=== PATIENT | female | born 1960 | race Caucasian/White ===

== ENCOUNTER 2018-12-23 10:13 | Inpatient (IN) | payer BC, OTHER ==
[~2018-12-23] VITALS: Ht 157.5 cm; Wt 71.4 kg
[2018-12-23] VITALS (32 sets, daily range): BP systolic 100–151; BP diastolic 56–85; PULSE 70–114; RESP 16–27; Ht 157.5 cm; Wt 71.4 kg
[~2018-12-23 10:13] MED LIST: CEFAZOLIN 1 GM INJ ONE; DESFLURANE 15 MIN ONE; HYDR-3612 PO; LEVO125T58 PO; LIDOCAINE 2% (SDV) 5 ML INJ ONE
[2018-12-23] MEDS ORDERED: LEVO150T7 PO (11:02)
[2018-12-23] MEDS ORDERED: HYDR-3609 ORAL (11:03)
--- NOTE | 2018-12-23 11:57 | PREAC ---
Date/Time of Note Date/Time of Note DATE: 12/23/18 TIME: 11:52 Anesthesia Eval and Record Evaluation Time Pre-Procedure Interview DATE: 12/23/18 TIME: 11:52 Age 58 Sex female NPO: 8 hrs Preoperative diagnosis DEGENERATIVE LUMBAR SCOLIOSIS Planned procedure ANTERIOR LUMBAR INTERBODY FUSION L3-S1, POSTERIOR INSTRUMENTED FUSION Past Medical History Past Medical History: Includes Endo: Hypothyroid GI: Other (GASTRIC BYPASS SURGERY ) Surgery & Anesthesia Issues No known issue Meds Anticoagulation: No Beta Demi within 24 hr: No Reason Beta Demi not given: Pt. not on B-Demi Reported Medications Hydrocodone/Acetaminophen (Hydrocodone-Acetamin 10-325 mg) 1 Each Tablet, 1 TAB ORAL Q6 PRN for PAIN LEVEL 7-10 12/23/18 Levothyroxine Sodium* (Levothyroxine Sodium*) 150 Mcg Tablet, 150 MCG PO BEFORE BREAKFAST, #30 TAB 12/23/18 Discontinued Reported Medications Levothyroxine Sodium (Levothroid) 125 Mcg Tablet, 125 MCG PO DAILY 03/05/12 Hydrocodone Bit-Acetaminophen* ([place]*) 1 Tab Tab, 1 TAB PO TID 03/05/12 Current Medications Lactated Ringer's 1,000 ml @ 0 mls/hr Q0M IV* ; Start 12/24/18 at 06:00; Stop 12/24/18 at 18:00 Cefazolin Sodium/ Dextrose 50 ml @ 100 mls/hr PREOP IVPB ; Start 12/24/18 at 06:00; Stop 12/24/18 at 19:00 Meds reviewed: Yes Allergies Coded Allergies: acetaminophen (Verified Allergy, Unknown, nauseous, 12/23/18) codeine (Verified Allergy, Unknown, nauseous, 12/23/18) morphine (Verified Allergy, Unknown, hallucinations, 12/23/18) oxycodone (Verified Allergy, Unknown, nauseous, 12/23/18) Uncoded Allergies: ANTIINFLAMMATORY (Allergy, Unknown, 03/05/12) Allergies Reviewed: Yes Labs/Studies Labs Reviewed: Reviewed by anesthesiologist Blood Bank Test 12/23/18 10:55 Antibody Screen NEGATIVE Blood Product Summary Counts Blood Type B POSITIVE Crossmatch Red Blood Cells test: N/A Studies: ECG, CXR Pre-procedure Exam Last vitals Vital Signs Date Temp Pulse Resp B/P (MAP) Pulse Ox O2 O2 Flow FiO2 Time Delivery Rate 12/23/18 98.8 70 16 129/73 98 Room Air 11:16 (91) Airway: Adequate mouth opening, Adequate thyromental dist Mallampati: Mallampati I Teeth: Normal Lung: Normal Heart: Normal ASA Physical Status ASA physical status: 2 Emergency: None Planned Anesthetic General/MAC: ETT, A Line Planned Pain Management Parenteral pain med Pre-operative Attestations Prior to commencing anesthesia and surgery, the patient was re-evaluated, there was verification of: *The patient's identity *The results of appropriate recent lab work and preoperative vital signs *The above evaluation not changing prior to induction *Anesthetic plan, risk benefits, alternative and complications discussed with patient/family; questions answered; patient/family understands, accepts and wish es to proceed. HOMER HAJI Dec 23, 2018 11:57
[2018-12-23] MEDS ORDERED: GELATIN SIZE 100 SPONGE ONE (12:21)
[2018-12-23] MEDS ORDERED: SURGIFOAM POWDER 1 GM KIT ONE (12:21)
[2018-12-23] MEDS ORDERED: POLYMYXIN/BACITRACIN 1L IRRIG ONE (12:22)
[2018-12-23] MEDS ORDERED: BUPIVACAINE 0.5%/EPI (SDV) 30 ML INJ ONE (12:22)
[2018-12-23] MEDS ORDERED: PROPOFOL 20 ML ONE (12:24)
[2018-12-23] MEDS ORDERED: HYDROmorphONE 2 MG/ML SYG ONE (12:30)
[2018-12-23] MEDS ORDERED: ROCURONIUM 50 MG INJ ONE (12:30)
[2018-12-23] MEDS ORDERED: PHENYLephrine 10 MG INJ ONE (12:32)
[2018-12-23] MEDS: D5W-0.45 NACL + KCL 20 MEQ 1,000 ML IV SCH ×3 (12:36→22:36)
--- NOTE | 2018-12-23 12:36 | HPN ---
Date/Time of Note Date/Time of Note DATE: 12/23/18 TIME: 12:36 Interval H&P Admission Note Pt. seen H&P reviewed: No system changes BETHANY RIZZO PA-C Dec 23, 2018 12:36
[2018-12-23] MEDS ORDERED: DIPHENHYDRAMINE 50 MG INJ IV PRN ×2 (13:00→17:00)
[2018-12-23] MEDS ORDERED: ONDANSETRON 4 MG INJ IV PRN ×2 (13:00→17:00)
[2018-12-23] MEDS ORDERED: BISACODYL 10 MG SUPP PR PRN (13:00)
[2018-12-23] MEDS ORDERED: NALOXONE (0.4 MG/ML) INJ IV PRN (13:00)
[2018-12-23] MEDS ORDERED: DIPHENHYDRAMINE 25 MG CAP PO PRN (13:00)
[2018-12-23] MEDS ORDERED: CYCLOBENZAPRINE 10 MG TAB PO PRN (13:00)
[2018-12-23] MEDS: CEFAZOLIN 1 GM/50 ML (PMX) 50 ML IVPB SCH ×2 (13:00→20:57)
[2018-12-23] MEDS ORDERED: HYDROmorphONE 0.5 MG/0.5 ML SYG IV PRN (13:00)
[2018-12-23] MEDS ORDERED: CEPASTAT LOZENGE MT PRN (13:00)
[2018-12-23] MEDS ORDERED: AL HYDROX/MG HYDROX/SIMETH 30 ML CUP PO PRN (13:00)
[2018-12-23] MEDS ORDERED: ACETAMINOPHEN 325 MG TAB PO PRN (13:00)
[2018-12-23] MEDS: THROMBIN (BOVINE) 5,000 UNIT VIAL TP ONE (14:02)
[2018-12-23] MEDS ORDERED: DEXAMETHASONE 4 MG/ML 5 ML INJ ONE (14:39)
[2018-12-23] MEDS ORDERED: ONDANSETRON 4 MG INJ ONE (14:40)
--- NOTE | 2018-12-23 16:35 | SIPON ---
Date/Time of Note Date/Time of Note DATE: 12/23/18 TIME: 16:34 Operative Report Preoperative Diagnosis Degenerative lumbar scoliosis Postoperative Diagnosis Degenerative lumbar scoliosis Operation/Procedure Performed L2-L5 anterior lumbar fusion Surgeon see signature line shipping and receiving assistant Yocasta Hinds Anesthesia: general Estimated blood loss: 10 - 50 ml's Transfusion Required none Specimen Disc Grafts/Implants Cages Complications none ANTONIO TRUJILLO MD Dec 23, 2018 16:35
[2018-12-23] MEDS ORDERED: FENTAnyl 50 MCG/ML VIAL ONE (16:37)
--- NOTE | 2018-12-23 16:37 | PAC ---
Date/Time of Note Date/Time of Note DATE: 12/23/18 TIME: 16:37 Post-Anesthesia Notes Post-Anesthesia Note Last documented vital signs Vital Signs Date Temp Pulse Resp B/P (MAP) Pulse Ox O2 O2 Flow FiO2 Time Delivery Rate 12/23/18 98.8 70 16 129/73 98 Room Air 1637 (91) Activity: WNL Respiratory function: WNL Cardiovascular function: WNL Mental status: Baseline Pain reasonably controlled: Yes Hydration appropriate: Yes Nausea/Vomiting absent: Yes HOMER HAJI Dec 23, 2018 16:37
[2018-12-23] MEDS: HYDROmorphONE 0.2 MG/ML PCA IV SCH ×2 (16:46→23:14)
[2018-12-23] MEDS: FENTAnyl 50 MCG/ML VIAL IV PRN ×2 (16:48→16:54)
[2018-12-23] MEDS ORDERED: ALBUTEROL 0.083% (NEB) 2.5 MG/3 ML AMP HHN PRN (17:00)
[2018-12-23] MEDS ORDERED: MIDAZOLAM 1 MG/ML 2 ML INJ IV PRN (17:00)
[2018-12-23] MEDS ORDERED: hydrALAzine 20 MG INJ IV PRN (17:00)
[2018-12-23] MEDS ORDERED: FENTAnyl 50 MCG/ML VIAL IV PRN ×2 (17:00)
[2018-12-23] MEDS ORDERED: EPHEDrine SULFATE 50 MG/5 ML SYG IV PRN (17:00)
[2018-12-23] MEDS ORDERED: METOCLOPRAMIDE 10 MG INJ IV PRN (17:00)
[2018-12-23] MEDS ORDERED: KETOROLAC 30 MG INJ IV PRN (17:00)
[2018-12-23] MEDS ORDERED: HYDROmorphONE 1 MG/5 ML IV SYRINGE IV PRN ×3 (17:00)
[2018-12-23] MEDS ORDERED: OXYCODONE/ACETAMINOPHEN (5/325) TAB PO PRN ×2 (17:00)
[2018-12-23] MEDS ORDERED: MEPERIDINE 25 MG INJ IV PRN (17:00)
[2018-12-23] MEDS ORDERED: LABETALOL HCL 20MG INJ IV PRN (17:00)
--- NOTE | 2018-12-23 18:21 | OPR ---
DATE OF OPERATION: 12/23/2018 PREOPERATIVE DIAGNOSES: Degenerative lumbar scoliosis and stenosis with radiculopathy. POSTOPERATIVE DIAGNOSES: Degenerative lumbar scoliosis and stenosis with radiculopathy. PROCEDURES: 1. Anterior lumbar interbody fusion at L2 to L3, L3 to L4, L4 to L5. 2. Placement of intervertebral biomechanical device at L2 to L3, L3 to L4, L4 to L5. 3. Use of allograft. 4. Use of C-arm fluoroscopy with interpretation without radiologist present. 5. Intraoperative neuromonitoring. IMPLANTS: 1. RTI Fortilink interbody cages 9 x 45 mm width with 6 degrees of lordosis x 22 mm at L2 to L3 and L3 to L4 and 11 mm x 22 mm x 45 mm with 6 degrees of lordosis at L4 to L5. 2. Biosphere. PRIMARY SURGEON: Niraj Dominguez MD SLIP LASTER: Yocasta Hinds PA-C NEED FOR HAZARDOUS MATERIALS DRIVER: During this spinal surgical procedure, my orthodontist assistant was used to retract and protect the spinal nerves and dural sac. My orthodontist assistant also employed the suction catheters to ev acuate blood from the surgical field to improve visualization of the neural structures. The assistan t was medically necessary to facilitate the completion of the surgery in a safe and expeditious [facility] regulations, as well as hospital bylaws, preclude the use of non-licensed [facility] care personnel, such as operating room technicians, to perform these functions. FINDINGS: Neuromonitoring at the start of the case revealed left L3 amplitude down 30%, left L4 down 40%, right L5 down 30%. At the end of the case, nerve signals returned to normal. The patient had a significant degenerative scoliosis. ESTIMATED BLOOD LOSS: 50 mL. DRAINS: None. SPECIMENS: L2 to L3, L3 to L4, L4 to L5 disk. COMPLICATIONS OF PROCEDURES: None. ANESTHESIOLOGIST: Dr. Urias TYPE OF ANESTHESIA: General. INDICATIONS FOR PROCEDURE: This is a 58-year-old female with degenerative lumbar scoliosis with back pain as well as lower extremity pain. She had coronal and sagittal deformities and therefore it is recommended that she undergo the above procedure. Preoperatively, we discussed risks, benefits and a lternatives. She understood and wished to proceed. DESCRIPTION OF PROCEDURE IN DETAIL: The patient was identified in the preoperative holding area, giv en Ancef antibiotic, taken to the operating room, where she was successfully placed under general ane sthesia. Neuromonitoring leads were placed. Sequential compressive devices were applied. Elizondo cat heter was introduced. Remote intraoperative neuromonitoring was performed by Dr. Patel from 12:4 4 until 16:40 to include SSEP, MEP and EMG performed by [facility]. The patient was placed in the left lateral decubitus position. Bony prominences were padded. The bed was flexed to allow acce ss to the spine. The right flank was prepped, draped in usual sterile fashion. A direct lateral inc ision was then made. Skin was incised. I then finger dissected into the retroperitoneal space. Tye correa, I placed a dilator onto the L4 to L5 level. I placed a guidewire. This was done with neurom onitoring. I placed larger dilators followed by placement of the retractor blade. I exposed the lat eral annulus at L4 to L5 on the right. I probed the area and made sure that there were no neural martin ments in the field. I made an annulotomy. I performed a radical diskectomy. Under C-arm guidance, I placed various trials and chose the appropriate graft height. I then took TETRAfuse cage within wh ich I placed allograft and I impacted intervertebral mechanical device into the L4 to L5 level to com plete the anterior lumbar interbody fusion at L4 to L5. I then turned my attention to the L2 to L3 l evel. The patient had a very low rib and therefore I go between the ribs, making sure I was not in t he neurovascular bundle. Once this was done, I was able to place dilators followed by the retractor. I performed similar steps to the previous level and exposed the area to make sure that there were n o neural elements in the field. Annulotomy was made followed by radical diskectomy. I placed variou s trials and chose the appropriate graft height. I then took the TETRAfuse cage within which I place d allograft and I impacted the rib and intervertebral biomechanical device into the L2 to L3 level to complete the anterior lumbar interbody fusion at L2 to L3. I then turned my attention to the L3 to L4 level. Similarly here, I was able to place a guidewire. This level was more difficult due to lar ge osteophyte. I placed dilator followed by placement of guidewires and the larger dilators. I stim ulated each of these along the way. I then docked the retractor blade. I confirmed that there were no neural elements in the field. There was a large lateral osteophyte and I was only able to barely get my knife blade into the area and therefore I took a pituitary rongeur and removed the lateral ost eophytes to allow access to the disk space. I then made an annulotomy and placed dilators to open up the disk space. I then placed various trials and chose the appropriate graft height. I then took t he TETRAfuse cage within which I placed allograft and I impacted intervertebral mechanical device int o the L3 to L4 level to complete the anterior lumbar interbody fusion at L2 to L3. Once this was don e, I took final AP and lateral images and I was happy with placement of the hardware. The nerve sign als returned to normal. I irrigated the wound and achieved hemostasis with Surgifoam and bipolar cau michael. The retractors were then removed. I took final images and I proceeded to close the wound in l al. I closed the deep fascia with #1 Vicryl stitch. There was not enough tissue to close the inn er rib space. I then closed subcutaneous tissue with a 2-0 Vicryl stitch. A 4-0 Monocryl closure wa s then performed. Dermabond was then applied. The patient was then awakened from anesthesia and isaiah en to the recovery room in stable condition. Lap, sponge and instrument counts were correct x2. The re were no apparent complications during the procedure. The patient will be admitted to the [facility] for routine postoperative care to include pain co ntrol, neurovascular checks, antibiotics and physical therapy. Dictated By: NIRAJ DOMINGUEZ MD BB/JAYLEEN Conf#: [id number] DID#: [id number] CC: MAYITO KIRBY MD;*EndCC*
--- NOTE | 2018-12-23 20:20 | CONS ---
DATE OF ADMISSION: 12/23/2018 DATE OF CONSULTATION: 12/23/2018 TYPE OF CONSULTATION: Medical. Thank you, Dr. Dominguez, for asking me to participate in medical management of this patient. HISTORY OF PRESENT ILLNESS: This 58-year-old female is now postop a lumbar spine surgery. The patie nt is awake and alert. She was having pain prior to her surgery that was in the low back and radiate d down her left leg from the knee to the foot. She underwent surgery today which included an anterio r lumbar interbody fusion at L2-L3, L3-L4 and L4-L5. She also had a placement of an intervertebral b iomechanical device at those levels. She does have some low back pain now, although the left leg jovanni n is gone. She denies any chest pain or shortness of breath. Her is in the room with her. She does have a preoperative note from Dr. Addison beard who cleared her for this surgery. PAST MEDICAL HISTORY: Acquired hypothyroidism. PAST SURGICAL HISTORY: , gastric bypass surgery, ortho surgery, tonsillectomy, total hyster ectomy. SOCIAL HISTORY: She is . She has never smoked. She does not drink alcohol. PREOPERATIVE MEDICATIONS: 1. Synthroid 125 mcg a day. 2. [place] 10/325. 3. Gabapentin 300 mg 5 times a day. 4. Fioricet. ALLERGIES: SHE HAS ALLERGIES TO ERYTHROMYCIN AND MORPHINE. PHYSICAL EXAMINATION: GENERAL: At this time reveals a well-developed female in no apparent distress, although she is in mi in that is being medicated for. VITAL SIGNS: Temperature 98.2, pulse is 78, respirations 20, blood pressure 128/75, O2 saturation 98 % on room air. HEENT: Head normocephalic. Eyes: Extraocular muscles intact. NOSE AND MOUTH: Normal. NECK: Supple. No neck vein distention. LUNGS: Clear to auscultation. HEART: Regular rhythm. No murmurs, gallops or rubs. ABDOMEN: Soft, nontender, no masses or megaly. EXTREMITIES: No peripheral edema. IMPRESSION: This patient is now stable postop a lumbar spine surgery. She had an extensive lumbar s pine fusion of multiple levels. She denies any chest pain or shortness of breath. She has no histor y of heart disease, hypertension or diabetes mellitus. She is on thyroid replacements for hypothyroi dism. I will manage the patient's hypothyroidism. PLAN: 1. Resume routine medications. 2. Check labs in the morning. 3. Postop lumbar spine surgery protocol. 4. I will follow the patient along with you. Dictated By: YULIYA ROSALES MD ND/JAYLEEN Conf#: [id number] DID#: [id number] CC: ANTONIO DOMINGUEZ MD;*End*
[2018-12-23] MEDS: DOCUSATE SODIUM 100 MG CAP PO SCH (20:57)
[2018-12-24] VITALS (29 sets, daily range): BP systolic 91–159; BP diastolic 50–83; PULSE 70–113; RESP 17–36
[2018-12-24] MEDS: LEVOTHYROXINE 150 MCG TAB PO SCH (01:19)
[2018-12-24] MEDS: CEFAZOLIN 1 GM/50 ML (PMX) 50 ML IVPB SCH ×4 (05:13→23:20)
[2018-12-24] MEDS: D5W-0.45 NACL + KCL 20 MEQ 1,000 ML IV SCH ×3 (05:15→20:07)
[2018-12-24] MEDS ORDERED: CEFAZOLIN 2 GM/50 ML (PMX) 50 ML IVPB SCH (06:00)
[2018-12-24] MEDS ORDERED: PANTOPRAZOLE 40 MG INJ IV SCH (06:00)
[2018-12-24] MEDS ORDERED: LACTATED RINGER'S 1,000 ML IV* SCH (06:00)
[2018-12-24] MEDS: HYDROmorphONE 0.2 MG/ML PCA IV SCH ×2 (07:41→19:38)
[2018-12-24] MEDS: DOCUSATE SODIUM 100 MG CAP PO SCH ×2 (08:00→20:51)
--- NOTE | 2018-12-24 08:15 | CONS ---
Assessment/Plan Assessment/Plan Hospital Course (Demo Recall) 1. Miroslava is now 1 day postop a lumbar spine surgery. She is feeling better today. She has been afebrile. Her laboratory tests are acceptable. She is going to have a second stage surgery today to complete her lumbar spine reconstruction. 2. Her blood pressure is low this morning I am going to give her a bolus of normal saline. Consultation Date/Type/Reason Admit Date/Time Dec 23, 2018 at 10:13 Initial Consult Date Type of Consult medicine Date/Time of Note DATE: 12/24/18 TIME: 08:11 24 HR Interval Summary Free Text/Dictation She is now 1 day postop a lumbar spine surgery. She is feeling better with much less pain. She is going for a second stage surgery today. Constitutional: improved Exam/Review of Systems Exam Vitals Vital Signs Date Temp Pulse Resp B/P (MAP) Pulse Ox O2 O2 Flow FiO2 Time Delivery Rate 12/24/18 98.2 82 18 91/50 (64) 97 Room Air 08:04 12/23/18 2.0 23:50 Intake and Output 12/23/18 12/23/18 12/24/18 1515:00 23:00 07:00 IntakeIntake Total 1750 ml 1350 ml OutputOutput Total 350 ml 2700 ml BalanceBalance 1400 ml -1350 ml Constitutional: alert, oriented, well developed Respiratory: clear to auscultation, normal air movement Cardiovascular: regular rate and rhythm Gastrointestinal: soft, non-tender Musculoskeletal: nl extremities to inspection Results Result Diagram: 12/24/18 0427 12/24/18 0427 Results 24hrs Laboratory Tests Test 12/24/18 04:27 White Blood Count 8.8 Red Blood Count 4.26 Hemoglobin 10.7 L Hematocrit 34.6 L Mean Corpuscular Volume 81.2 L Mean Corpuscular Hemoglobin 25.1 L Mean Corpuscular Hemoglobin Concent 30.9 L Red Cell Distribution Width 14.9 H Platelet Count 360 Mean Platelet Volume 9.1 Immature Granulocytes % 0.100 Neutrophils % 69.8 Lymphocytes % 19.9 Monocytes % 10.0 Eosinophils % 0.1 Basophils % 0.1 Nucleated Red Blood Cells % 0.0 Immature Granulocytes # 0.010 Neutrophils # 6.1 Lymphocytes # 1.7 Monocytes # 0.9 Eosinophils # 0.0 Basophils # 0.0 Nucleated Red Blood Cells # 0.0 Sodium Level 141 Potassium Level 4.3 Chloride Level 102 Carbon Dioxide Level 31 Anion Gap 8 Blood Urea Nitrogen 11 Creatinine 0.67 Est Glomerular Filtrat Rate mL/min > 60 Glucose Level 121 Calcium Level 8.5 Magnesium Level 1.8 Medications Medication Current Medications Potassium Chloride/Dextrose/ Sod Cl 1,000 ml @ 100 mls/hr Q10H IV Last administered on 12/24/18at 05:15; Admin Dose 100 MLS/HR; Start 12/23/18 at 12:36 Acetaminophen/ Hydrocodone Bitart ([place] (325)) 1 tab Q4H PRN PO .PAIN 1-5; Start 12/26/18 at 10:00 Acetaminophen/ Hydrocodone Bitart ([place] (325)) 2 tab Q4H PRN PO .PAIN 6-10; Start 12/26/18 at 10:00 Hydromorphone HCl (Dilaudid) 0.2 mg Q1H PRN IV .BREAKTHROUGH PAIN; Start 12/23/18 at 13:00 Cefazolin Sodium 50 ml @ 100 mls/hr Q8H IVPB Last administered on 12/24/18at 05:13; Admin Dose 100 MLS/HR; Start 12/23/18 at 13:00; Stop 12/26/18 at 05:29 Ondansetron HCl (Zofran Inj) 4 mg Q6H PRN IV NAUSEA/VOMITING Last administered on 12/23/18at 18:59; Admin Dose 4 MG; Start 12/23/18 at 13:00 Bisacodyl (Dulcolax Supp) 10 mg DAILY PRN IN .CONSTIPATION; Start 12/23/18 at 13:00 Docusate Sodium (Colace) 100 mg BID PO Last administered on 12/23/18at 20:57; Admin Dose 100 MG; Start 12/23/18 at 21:00 Pantoprazole (Protonix Iv) 40 mg DAILY@06 IV Last administered on 12/24/18at 05:13; Admin Dose 40 MG; Start 12/24/18 at 06:00 Al Hydrox/Mg Hydrox/Simethicone (Mag-Al Plus) 15 ml Q6H PRN PO .CONSTIPATION/DYSPEPSIA; Start 12/23/18 at 13:00 Acetaminophen (Tylenol Tab) 650 mg Q4H PRN PO POPE OR TEMP GREATER THAN 101.3F; Start 12/23/18 at 13:00 Cyclobenzaprine HCl (Flexeril) 10 mg TID PRN PO .MUSCLE SPASMS Last adm inistered on 12/23/18at 19:19; Admin Dose 10 MG; Start 12/23/18 at 13:00 Phenol (Cepastat Lozenge) 1 lozenge PRN PRN [place] .SORE THROAT; Start 12/23/18 at 13:00 Diphenhydramine HCl (Benadryl) 25 mg Q6H PRN PO .ITCHING; Start 12/23/18 at 13:00 Diphenhydramine HCl (Benadryl) 25 mg Q6H PRN IV .ITCHING; Start 12/23/18 at 13:00 Naloxone HCl (Narcan) 0.2 mg Q2M PRN IV .RR 8 BREATHS/MIN OR LESS; Start 12/23/18 at 13:00 Hydromorphone HCl (Dilaudid HERBOLOGIST) HERBOLOGIST to be started in PACU Q4PCA IV Last administered on 12/24/18at 07:41; Admin Dose 6 MG; Start 12/23/18 at 13:00; Stop 12/26/18 at 10:00 Miscellaneous Information 1. Hold HERBOLOGIST at 1,000... HERBOLOGIST IV ; Start 12/23/18 at 13:00; Stop 12/26/18 at 10:00 Levothyroxine Sodium (Synthroid) 150 mcg BEFORE BREAKFAST PO ; Start 12/24/18 at 07:00 YULIYA ROSALES MD Dec 24, 2018 08:15
[2018-12-24] MEDS ORDERED: SOD CHLORIDE 0.9% 250 ML IV ONE (08:30)
[2018-12-24] MEDS ORDERED: SURGIFOAM POWDER 1 GM KIT ONE (09:23)
[2018-12-24] MEDS ORDERED: BUPIVACAINE 0.5%/EPI (SDV) 30 ML INJ ONE (09:23)
[2018-12-24] MEDS ORDERED: THROMBIN (BOVINE) 5,000 UNIT VIAL TP ONE (09:23)
[2018-12-24] MEDS ORDERED: HEPARIN 1000 UNITS/ML 10 ML INJ ONE (09:47)
--- NOTE | 2018-12-24 10:04 | HPN ---
Date/Time of Note Date/Time of Note DATE: 12/24/18 TIME: 10:04 Interval H&P Admission Note Pt. seen H&P reviewed: No system changes BETHANY RIZZO PA-C Dec 24, 2018 10:04
[2018-12-24] MEDS ORDERED: CEFAZOLIN 1 GM INJ ONE ×2 (10:28→15:46)
[2018-12-24] MEDS ORDERED: ACETAMINOPHEN 325 MG TAB PO PRN (10:30)
[2018-12-24] MEDS ORDERED: CEPASTAT LOZENGE MT PRN (10:30)
[2018-12-24] MEDS ORDERED: NALOXONE (0.4 MG/ML) INJ IV PRN (10:30)
[2018-12-24] MEDS ORDERED: DIPHENHYDRAMINE 25 MG CAP PO PRN (10:30)
[2018-12-24] MEDS ORDERED: AL HYDROX/MG HYDROX/SIMETH 30 ML CUP PO PRN (10:30)
[2018-12-24] MEDS ORDERED: DIPHENHYDRAMINE 50 MG INJ IV PRN ×2 (10:30→16:30)
[2018-12-24] MEDS ORDERED: BISACODYL 10 MG SUPP PR PRN (10:30)
[2018-12-24] MEDS ORDERED: ONDANSETRON 4 MG INJ IV PRN ×2 (10:30→16:30)
--- NOTE | 2018-12-24 10:30 | PN ---
Date/Time of Note Date/Time of Note DATE: 12/24/18 TIME: 10:29 Assessment/Plan Lines/Catheters IV Catheter Type (from Nrsg): Peripheral IV Elizondo in Place (from Nrsg): Yes Assessment/Plan Assessment/Plan POD #1 s/p L2-5 lateral fusion will proceed with stage II of her surgery as planned - posterior decompression and instrumented fusion L2-S1 Subjective 24 Hr Interval Summary pt c/o LBP notes improvement in left leg numbness and pain Exam/Review of Systems Vital Signs Vitals Vital Signs Date Temp Pulse Resp B/P (MAP) Pulse Ox O2 O2 Flow FiO2 Time Delivery Rate 12/24/18 09:13 12/24/18 102/53 08:13 (69) 12/24/18 98.2 82 97 Room Air 08:04 12/23/18 2.0 23:50 Intake and Output 12/23/18 12/23/18 12/24/18 1515:00 23:00 07:00 IntakeIntake Total 1750 ml 1350 ml OutputOutput Total 350 ml 2700 ml BalanceBalance 1400 ml -1350 ml Exam Free Text/Dictation exam unchanged Results Result Diagram: 12/24/18 0427 12/24/18 0427 BETHANY RIZZO PA-C Dec 24, 2018 10:30
--- NOTE | 2018-12-24 10:31 | PREAC ---
Date/Time of Note Date/Time of Note DATE: 12/24/18 TIME: 10:28 Anesthesia Eval and Record Evaluation Time Pre-Procedure Interview DATE: 12/24/18 TIME: 10:28 Age 58 Sex female NPO: 8 hrs Preoperative diagnosis Degenerative Lumbar L2,3,4,5 S1 scoliosis Planned procedure L2,3,4,5 S1 Decompression Past Medical History Past Medical History: Includes Endo: Hypothyroid, Hyperthyroid Surgery & Anesthesia Issues No known issue Meds Anticoagulation: No Beta Demi within 24 hr: No Reason Beta Demi not given: Pt. not on B-Demi Reported Medications Hydrocodone/Acetaminophen (Hydrocodone-Acetamin 10-325 mg) 1 Each Tablet, 1 TAB ORAL Q6 PRN for PAIN LEVEL 7-10 12/23/18 Levothyroxine Sodium* (Levothyroxine Sodium*) 150 Mcg Tablet, 150 MCG PO BEFORE BREAKFAST, #30 TAB 12/23/18 Discontinued Reported Medications Levothyroxine Sodium (Levothroid) 125 Mcg Tablet, 125 MCG PO DAILY 03/05/12 Hydrocodone Bit-Acetaminophen* ([place]*) 1 Tab Tab, 1 TAB PO TID 03/05/12 Current Medications Acetaminophen/ Hydrocodone Bitart ([place] (10/325)) 1 tab Q4H PRN PO .PAIN 1-5; Start 12/26/18 at 10:00 Acetaminophen/ Hydrocodone Bitart ([place] (10/325)) 2 tab Q4H PRN PO .PAIN 6-10; Start 12/26/18 at 10:00 Levothyroxine Sodium (Synthroid) 150 mcg BEFORE BREAKFAST PO ; Start 12/24/18 at 07:00 Potassium Chloride/Dextrose/ Sod Cl 1,000 ml @ 100 mls/hr Q10H IV ; Start 12/24/18 at 10:07; Status UNV Acetaminophen/ Hydrocodone Bitart ([place] (10/325)) 1 tab Q4H PRN PO .PAIN 1-5; Start 12/24/18 at 10:30; Status UNV Acetaminophen/ Hydrocodone Bitart ([place] (10/325)) 2 tab Q4H PRN PO .PAIN 6-10; Start 12/24/18 at 10:30; Status UNV Hydromorphone HCl (Dilaudid) 0.2 mg Q1H PRN IV .BREAKTHROUGH PAIN; Start 12/24/18 at 10:30; Status UNV Cefazolin Sodium 50 ml @ 100 mls/hr Q8H IVPB ; Start 12/24/18 at 10:30; Stop 12/25/18 at 02:59; Status UNV Ondansetron HCl (Zofran Inj) 4 mg Q6H PRN IV NAUSEA/VOMITING; Start 12/24/18 at 10:30; Status UNV Bisacodyl (Dulcolax Supp) 10 mg DAILY PRN [place] .CONSTIPATION; Start 12/24/18 at 10:30; Status UNV Docusate Sodium (Colace) 100 mg BID PO ; Start 12/24/18 at 21:00; Status UNV Al Hydrox/Mg Hydrox/Simethicone (Mag-Al Plus) 15 ml Q6H PRN PO .CONSTIPATION/DYSPEPSIA; Start 12/24/18 at 10:30; Status UNV Acetaminophen (Tylenol Tab) 650 mg Q4H PRN PO POPE OR TEMP GREATER THAN 101.3F; Start 12/24/18 at 10:30; Status UNV Cyclobenzaprine HCl (Flexeril) 10 mg TID PRN PO .MUSCLE SPASMS; Start 12/24/18 at 10:30; Status UNV Phenol (Cepastat Lozenge) 1 lozenge PRN PRN [place] .SORE THROAT; Start 12/24/18 at 10:30; Status UNV Diphenhydramine HCl (Benadryl) 25 mg Q6H PRN PO .ITCHING; Start 12/24/18 at 10:30; Status UNV Diphenhydramine HCl (Benadryl) 25 mg Q6H PRN IV .ITCHING; Start 12/24/18 at 10:30; Status UNV Naloxone HCl (Narcan) 0.2 mg Q2M PRN IV .RR 8 BREATHS/MIN OR LESS; Start 12/24/18 at 10:30; Status UNV Hydromorphone HCl (Dilaudid RESEARCH PSYCHOLOGIST) RESEARCH PSYCHOLOGIST to be started in PACU Q4PCA IV ; Start 12/24/18 at 10:30; Status UNV Miscellaneous Information 1. Hold RESEARCH PSYCHOLOGIST at 1,000... RESEARCH PSYCHOLOGIST IV ; Start 12/24/18 at 10:30; Status UNV Meds reviewed: Yes Allergies Coded Allergies: acetaminophen (Verified Allergy, Unknown, nauseous, 12/23/18) codeine (Verified Allergy, Unknown, nauseous, 12/23/18) morphine (Verified Allergy, Unknown, hallucinations, 12/23/18) oxycodone (Verified Allergy, Unknown, nauseous, 12/23/18) Uncoded Allergies: ANTIINFLAMMATORY (Allergy, Unknown, 03/05/12) Allergies Reviewed: Yes Labs/Studies Labs Reviewed: Reviewed by anesthesiologist Result Diagram: 12/24/18 0427 12/24/18 0427 Laboratory Tests 12/24/18 04:27 Blood Bank Test 12/23/18 10:55 Antibody Screen NEGATIVE Blood Product Summary Counts Blood Type B POSITIVE Crossmatch Red Blood Cells test: N/A Studies: ECG Pre-procedure Exam Last vitals Vital Signs Date Temp Pulse Resp B/P (MAP) Pulse Ox O2 O2 Flow FiO2 Time Delivery Rate 12/24/18 09:13 12/24/18 102/53 08:13 (69) 12/24/18 98.2 82 97 Room Air 08:04 12/23/18 2.0 23:50 Airway: Adequate mouth opening, Adequate thyromental dist Mallampati: Mallampati II Teeth: Normal Lung: Normal Heart: Normal ASA Physical Status ASA physical status: 3 Emergency: None Planned Anesthetic General/MAC: ETT Planned Pain Management Parenteral pain med Pre-operative Attestations Prior to commencing anesthesia and surgery, the patient was re-evaluated, there was verification of: *The patient's identity *The results of appropriate recent lab work and preoperative vital signs *The above evaluation not changing prior to induction *Anesthetic plan, risk benefits, alternative and complications discussed with patient/family; questions answered; patient/family understands, accepts and wishes to proceed. LELA WALKER MD Dec 24, 2018 10:31
[2018-12-24] MEDS ORDERED: MIDAZOLAM 1 MG/ML 2 ML INJ ONE (10:33)
[2018-12-24] MEDS: THROMBIN (BOVINE) 5,000 UNIT VIAL TP ONE (12:01)
[2018-12-24] MEDS ORDERED: POLYMYXIN/BACITRACIN 1L IRRIG IRR ONE (12:03)
[2018-12-24] MEDS ORDERED: NEOSTIGMINE 3 MG/3 ML SYRINGE ONE (15:45)
[2018-12-24] MEDS ORDERED: PROPOFOL 100 ML ONE (15:45)
[2018-12-24] MEDS ORDERED: METOCLOPRAMIDE 10 MG INJ ONE (15:45)
[2018-12-24] MEDS ORDERED: ROCURONIUM 50 MG INJ ONE (15:45)
[2018-12-24] MEDS ORDERED: LIDOCAINE 2% (SDV) 5 ML INJ ONE (15:45)
[2018-12-24] MEDS ORDERED: ONDANSETRON 4 MG INJ ONE (15:45)
[2018-12-24] MEDS ORDERED: GLYCOPYRROLATE 0.4 MG INJ ONE (15:45)
--- NOTE | 2018-12-24 16:17 | SIPON ---
Date/Time of Note Date/Time of Note DATE: 12/24/18 TIME: 16:16 Operative Report Preoperative Diagnosis degen scoli s/p alif Postoperative Diagnosis degen scoli s/p alif Operation/Procedure Performed L2-S1 fusion Surgeon see signature line night assistant bethany Anesthesia: general Estimated blood loss: 150 - 200 ml's Transfusion Required none Specimen disk Grafts/Implants cage and screws Complications none ANTONIO TRUJILLO MD Dec 24, 2018 16:17
[2018-12-24] MEDS ORDERED: FENTAnyl 50 MCG/ML VIAL ONE (16:19)
--- NOTE | 2018-12-24 16:22 | PAC ---
Date/Time of Note Date/Time of Note DATE: 12/24/18 TIME: 16:21 Post-Anesthesia Notes Post-Anesthesia Note Last documented vital signs Vital Signs Date Temp Pulse Resp B/P (MAP) Pulse Ox O2 O2 Flow FiO2 Time Delivery Rate 12/24/18 99.0 16:18 12/24/18 19 09:13 12/24/18 102/53 08:13 (69) 12/24/18 82 97 Room Air 08:04 12/23/18 2.0 23:50 Activity: WNL Respiratory function: WNL Cardiovascular function: WNL Mental status: Baseline Pain reasonably controlled: Yes Hydration appropriate: Yes Nausea/Vomiting absent: Yes Comments BP:134/64, P:78, Spo2:100%, T:99 LELA WALKER MD Dec 24, 2018 16:22
[2018-12-24] MEDS ORDERED: MIDAZOLAM 1 MG/ML 2 ML INJ IV PRN (16:30)
[2018-12-24] MEDS ORDERED: METOCLOPRAMIDE 10 MG INJ IV PRN (16:30)
[2018-12-24] MEDS ORDERED: FENTAnyl 50 MCG/ML VIAL IV PRN ×2 (16:30)
--- NOTE | 2018-12-24 16:36 | OPR ---
DATE OF OPERATION: 12/24/2018 PREOPERATIVE DIAGNOSES: 1. Degenerative lumbar scoliosis. 2. Spinal stenosis. 3. Previous history of posterior decompression. 4. Status post anterior lumbar fusion. POSTOPERATIVE DIAGNOSES: 1. Degenerative lumbar scoliosis. 2. Spinal stenosis. 3. Previous history of posterior decompression. 4. Status post anterior lumbar fusion. PROCEDURES PERFORMED: 1. Pedicle screw placement at L2, L3, L5 and S1 bilaterally. 2. Use of navigation for pedicle screw placement. 3. Transforaminal lumbar interbody fusion L5-S1. 4. Placement of intervertebral mechanical device at L5-S1. 5. Posterolateral fusion at L2-3, L3-4, L4-5, L5-S1. 6. Left L5-S1 decompression for stenosis. 7. Use of C-arm fluoroscopy with interpretation without radiologist present. 8. Use of intraoperative neuromonitoring. 9. Use of operative microscope. 10. Use of allograft. PRIMARY SURGEON: Niraj Dominguez MD BLEACH TESTER: Yocasta Hinds PA-C NEED FOR CERTIFIED ART THERAPIST: During this spinal surgical procedure, my cancer genetics assistant was used to retract and protect the spinal nerves and dural sac. My cancer genetics assistant also employed the suction catheters to evacuate blood from the surgical field to improve visualization of the neural structures. The cancer genetics assistant was medically necessary to facilitate the completion of the surgery in a safe and expeditious manner. State of [place] regulations, as well as hospital bylaws, preclude the use of non-licensed health care personnel, such as operating room technicians, to perform these functions. IMPLANTS: 1. Orthofix [place] pedicle screws 6.5 x 40 mm bilaterally at L2 and L3, 7.5 x 45 mm bilaterally at L5, 7.5 x 40 mm bilaterally at S1. 2. NEXXT Matrixx 8 x 26 mm cage. 3. Biosphere. FINDINGS: Neuromonitoring at the beginning and at the end of the case were normal. There was a pars fracture on the left at L5 with stenosis. ESTIMATED BLOOD LOSS: 150 mL. DRAINS: None. SPECIMENS: L5-S1 disk. COMPLICATIONS OF PROCEDURES: None. ANESTHESIOLOGIST: Demetrio Elizabeth MD TYPE OF ANESTHESIA: General. INDICATIONS FOR PROCEDURE: This is a 58-year-old female with degenerative lumbar scoliosis with stenosis and radiculopathy. She failed nonoperative measures; therefore, it was recommended that she undergo the above procedure. Preoperatively, we discussed risks, benefits, alternatives. She understood and wished to proceed. DESCRIPTION OF PROCEDURE IN DETAIL: The patient was identified in the preoperative holding area, given Ancef antibiotics, taken to the operating room, where she was successfully placed under general anesthesia. Neuromonitoring leads were placed, sequential compressive devices were applied. The patient already had a catheter in place. She was placed in the operating room table in prone position over a Marshal frame. All bony prominences were well padded. The back was then prepped and draped in usual sterile fashion. Incision sites were identified and I injected the skin, subcutaneous tissue, and paraspinal musculature with 0.25% Marcaine and epinephrine. Incision was then initially made over the L5-S1 level utilizing the patient's previous incision and extending this a little distally. I dissected down to the dorsal fascia. I then subperiosteally dissected the L4, L5, and S1 lamina bilaterally. Scar tissue was encountered on the left from the previous surgery. This altered the field, adding at least 45 minutes to the procedure. Once I exposed the levels, I attached the clamps for the [employer] system to perform the navigation. Utilizing the [employer], I placed pedicle screws on the left at L5 and S1. I then took imaging and it did not appear to correlate with the [employer] images and therefore, I elected to discontinue the use of the navigation system. I replaced the left L5 screw in a better position. I then turned my attention to the right side and placed screws on the right at L5 and S1. I then used biplanar C-arm fluoroscopy and placed bilateral pedicle screws at L2 and L3 bilaterally. Once the screws were in place, I stimulated each of the screws and there was no evidence of cortical breach. I also had use of autograft. I then turned my attention to the L5-S1 level on the left. Microscope was brought in. The patient had previous surgery at this level. There was then a pars fracture at this level. I needed to perform a revision decompression as she has previously had a decompression and diskectomy at this level. I used curettes to clean off the scar tissue off the lamina. I then used a Kerrison and performed a revision laminotomy. I removed the pars fragment. I identified the left L5 and S1 pedicles as well as the S1 and L5 nerve roots. Scar tissue was then encountered over the annulus. This decompression was done in order to alleviate the stenosis and decompressed left L5 and S1 nerve roots and beyond what is required in order to perform an interbody fusion. Once this was done, I performed an annulotomy followed by radical diskectomy. I placed various trials and chose the appropriate graft height. I then took the titanium cage within which I placed allograft and I impacted intervertebral mechanical device into the L5-S1 level to complete the transforaminal lumbar interbody fusion. I also placed autograft and allograft into the disk space. I took imaging studies and was happy with placement of the cage. At this point, the microscope was taken off the field. I prepared the posterolateral gutters from L2 to the sacrum. I also burred the lamina on the right L4, L5, and S1. I placed autograft and allograft over the lamina of L4, L5 and S1 and then I placed allograft in the posterolateral gutters from L2 to the sacrum to complete the posterolateral fusion at L2-3, L3-4, L4-5 and L5-S1. Nerve signals remained normal. The wound was dry and therefore, I elected not to place a drain. I then placed the appropriate size kimberly with set screws with tightening per manufacture specification. I removed the boat engine mechanic tabs. I irrigated the wound. I then closed the wound in layers. I closed the deep fascia with #1 Vicryl stitch, followed by 2-0 Vicryl closure and a subcuticular closed with a 4-0 Monocryl. Dermabond was then applied. The patient was then awakened from anesthesia and taken to the recovery room in stable condition. Lap, sponge and instrument counts were correct x2. There were no apparent complications during the procedure. The patient will be admitted to the [facility] for routine postoperative care to include pain control, neurovascular checks, antibiotics, and physical therapy. Dictated By: NIRAJ VIEYRA/JAYLEEN Conf#: [id number] DID#: [id number] PASCUAL
[2018-12-24] MEDS: HYDROmorphONE 0.5 MG/0.5 ML SYG IV PRN (17:37)
[2018-12-25] MEDS: CYCLOBENZAPRINE 10 MG TAB PO PRN (01:51)
[2018-12-25 02:34] VITALS: BP 125/75; RESP 20
[2018-12-25] MEDS: CEFAZOLIN 1 GM/50 ML (PMX) 50 ML IVPB SCH (04:42)
[2018-12-25] MEDS: D5W-0.45 NACL + KCL 20 MEQ 1,000 ML IV SCH ×2 (04:42→15:27)
[2018-12-25] MEDS: LEVOTHYROXINE 150 MCG TAB PO SCH (06:11)
[2018-12-25] MEDS: HYDROmorphONE 0.2 MG/ML PCA IV SCH ×2 (06:16→14:37)
[2018-12-25 07:29] VITALS: BP 116/60; PULSE 91; RESP 19
[2018-12-25] MEDS: DOCUSATE SODIUM 100 MG CAP PO SCH ×2 (08:33→20:28)
--- NOTE | 2018-12-25 11:48 | PN ---
Date/Time of Note Date/Time of Note DATE: 12/25/18 TIME: 11:47 Assessment/Plan Lines/Catheters IV Catheter Type (from Nrsg): Peripheral IV Elizondo in Place (from Nrsg): Yes Assessment/Plan Assessment/Plan POD #1/2 s/p L2-S1 fusion ambulate, continue PT pain control routine care Subjective 24 Hr Interval Summary c/o right thigh pain left leg improved with surgery post-op LBP Exam/Review of Systems Vital Signs Vitals Vital Signs Date Temp Pulse Resp B/P (MAP) Pulse Ox O2 O2 Flow FiO2 Time Delivery Rate 12/25/18 18 09:00 12/25/18 98.4 91 116/60 93 Room Air 07:29 (78) 12/24/18 2.0 22:00 Intake and Output 12/24/18 12/24/18 12/25/18 1515:00 23:00 07:00 IntakeIntake Total 1400 ml 100 ml 1700 ml OutputOutput Total 1850 ml 2400 ml BalanceBalance 1400 ml -1750 ml -700 ml Exam Free Text/Dictation right quad strength intact left leg sensation improved incisions c/d/i Results Result Diagram: 12/25/18 0438 12/25/18 0438 BETHANY RIZZO PA-C Dec 25, 2018 11:48
[2018-12-25] MEDS ORDERED: MAGNESIUM SULFATE 2 GM/50 ML 50 ML IVPB ONE (15:00)
[2018-12-25 17:11] VITALS: BP 95/60; PULSE 130
[2018-12-25] MEDS ORDERED: SOD CHLORIDE 0.9% 250 ML IV ONE (18:00)
[2018-12-25 18:12] VITALS: BP 104/69; PULSE 81; RESP 20
--- NOTE | 2018-12-25 18:20 | CONS ---
Assessment/Plan Assessment/Plan Hospital Course (Demo Recall) 1. Miroslava is now 2 days postop a lumbar spine surgery that was done in 2 stages . She is feeling better today. She has been afebrile. She has been tachycardic and her blood pressure has been low normal. An EKG was done which showed sinus tachycardia with some PVCs. Her magnesium level was low and is being replaced now. I did order a bolus of normal saline to increase the blood pressure and to correct the tachycardia.. Labs are ordered for tomorrow. Consultation Date/Type/Reason Admit Date/Time Dec 23, 2018 at 10:13 Initial Consult Date Type of Consult medicine Date/Time of Note DATE: 12/25/18 TIME: 18:13 24 HR Interval Summary Free Text/Dictation Miroslava says that she is feeling better. She has been up walking. Her latest blood pressure was low and she is tachycardic. Her EKG shows a sinus tachycardia with some PVCs. Her serum magnesium was low and is being replaced. Constitutional: no complaints, improved Exam/Review of Systems Exam Vitals Vital Signs Date Temp Pulse Resp B/P (MAP) Pulse Ox O2 O2 Flow FiO2 Time Delivery Rate 12/25/18 130 95/60 (72) 17:11 12/25/18 18 13:00 12/25/18 98.4 93 Room Air 07:29 12/24/18 2.0 22:00 Intake and Output 12/24/18 12/24/18 12/25/18 1515:00 23:00 07:00 IntakeIntake Total 1400 ml 100 ml 1700 ml OutputOutput Total 1850 ml 2400 ml BalanceBalance 1400 ml -1750 ml -700 ml Constitutional: alert, oriented, well developed Psych: no complaints Neck: supple Respiratory: clear to auscultation, normal air movement Cardiovascular: regular rate and rhythm Gastrointestinal: soft, non-tender Musculoskeletal: nl extremities to inspection Results Result Diagram: 12/25/18 0438 12/25/18 0438 Results 24hrs Laboratory Tests Test 12/25/18 04:38 White Blood Count 11.4 #H Red Blood Count 4.14 L Hemoglobin 10.5 L Hematocrit 34.0 L Mean Corpuscular Volume 82.1 Mean Corpuscular Hemoglobin 25.4 L Mean Corpuscular Hemoglobin Concent 30.9 L Red Cell Distribution Width 14.8 H Platelet Count 249 # Mean Platelet Volume 8.5 Immature Granulocytes % 0.600 H Neutrophils % 74.1 Lymphocytes % 14.5 L Monocytes % 10.3 Eosinophils % 0.1 Basophils % 0.4 Nucleated Red Blood Cells % 0.0 Immature Granulocytes # 0.070 H Neutrophils # 8.4 H Lymphocytes # 1.7 Monocytes # 1.2 H Eosinophils # 0.0 Basophils # 0.0 Nucleated Red Blood Cells # 0.0 Sodium Level 137 Potassium Level 4.4 Chloride Level 97 Carbon Dioxide Level 35 H Anion Gap 5 Blood Urea Nitrogen 7 Creatinine 0.66 Est Glomerular Filtrat Rate mL/min > 60 Glucose Level 114 Calcium Level 8.4 Magnesium Level 1.5 L Medications Medication Current Medications Levothyroxine Sodium (Synthroid) 150 mcg BEFORE BREAKFAST PO Last administered on 12/25/18at 06:11; Admin Dose 150 MCG; Start 12/24/18 at 07:00 Potassium Chloride/Dextrose/ Sod Cl 1,000 ml @ 100 mls/hr Q10H IV Last administered on 12/25/18at 15:27; Admin Dose 100 MLS/HR; Start 12/24/18 at 10:07 Acetaminophen/ Hydrocodone Bitart ([place] (10/325)) 1 tab Q4H PRN PO .PAIN 1-5; Start 12/24/18 at 10:30 Acetaminophen/ Hydrocodone Bitart ([place] (10/325)) 2 tab Q4H PRN PO .PAIN 6-10; Start 12/24/18 at 10:30 Hydromorphone HCl (Dilaudid) 0.2 mg Q1H PRN IV .BREAKTHROUGH PAIN Last administered on 12/24/18at 17:37; Admin Dose 0.2 MG; Start 12/24/18 at 10:30 Ondansetron HCl (Zofran Inj) 4 mg Q6H PRN IV NAUSEA/VOMITING; Start 12/24/18 at 10:30 Bisacodyl (Dulcolax Supp) 10 mg DAILY PRN [place] .CONSTIPATION; Start 12/24/18 at 10:30 Docusate Sodium (Colace) 100 mg BID PO Last administered on 12/25/18at 08:33; Admin Dose 100 MG; Start 12/24/18 at 21:00 Al Hydrox/Mg Hydrox/Simethicone (Mag-Al Plus) 15 ml Q6H PRN PO .CONSTIPATION/DYSPEPSIA; Start 12/24/18 at 10:30 Acetaminophen (Tylenol Tab) 650 mg Q4H PRN PO POPE OR TEMP GREATER THAN 101.3F Last administered on 12/25/18at 00:39; Admin Dose 650 MG; Start 12/24/18 at 10:30 Cyclobenzaprine HCl (Flexeril) 10 mg TID PRN PO .MUSCLE SPASMS Last administered on 12/25/18at 01:51; Admin Dose 10 MG; Start 12/24/18 at 10:30 Phenol (Cepastat Lozenge) 1 lozenge PRN PRN [place] .SORE THROAT Last administered on 12/24/18at 21:02; Admin Dose 1 LOZENGE; Start 12/24/18 at 10:30 Diphenhydramine HCl (Benadryl) 25 mg Q6H PRN PO .ITCHING; Start 12/24/18 at 10: 30 Diphenhydramine HCl (Benadryl) 25 mg Q6H PRN IV .ITCHING; Start 12/24/18 at 10:30 Naloxone HCl (Narcan) 0.2 mg Q2M PRN IV .RR 8 BREATHS/MIN OR LESS; Start 12/24/18 at 10:30 Hydromorphone HCl (Dilaudid FIXING MACHINE OPERATOR) FIXING MACHINE OPERATOR to be started in PACU Q4PCA IV Last administered on 12/25/18at 14:37; Admin Dose 6 MG; Start 12/24/18 at 10:30; Stop 12/26/18 at 10:00 Miscellaneous Information 1. Hold FIXING MACHINE OPERATOR at 1,000... FIXING MACHINE OPERATOR IV ; Start 12/24/18 at 10:30 Sodium Chloride 250 ml @ 250 mls/hr Q1H ONCE IV ; Start 12/25/18 at 18:00; Stop 12/25/18 at 18:59 YULIYA ROSALES MD Dec 25, 2018 18:20
[2018-12-25 20:08] VITALS: BP 123/73; PULSE 121; RESP 18
[2018-12-26] VITALS (11 sets, daily range): BP systolic 84–154; BP diastolic 54–107; PULSE 61–147; RESP 18–22
[2018-12-26] MEDS: HYDROmorphONE 0.2 MG/ML PCA IV SCH (01:34)
[2018-12-26] MEDS: D5W-0.45 NACL + KCL 20 MEQ 1,000 ML IV SCH ×3 (01:51→23:13)
[2018-12-26] MEDS: CYCLOBENZAPRINE 10 MG TAB PO PRN (03:47)
[2018-12-26] MEDS: LEVOTHYROXINE 150 MCG TAB PO SCH (05:50)
[2018-12-26] MEDS ORDERED: METOPROLOL 5 MG INJ ONE (07:00)
--- NOTE | 2018-12-26 07:57 | PN ---
Date/Time of Note Date/Time of Note DATE: 12/26/18 TIME: 07:56 Assessment/Plan Lines/Catheters IV Catheter Type (from Nrsg): Peripheral IV Elizondo in Place (from Nrsg): Yes Assessment/Plan Assessment/Plan Patient had tachycardia yesterday. Magnesium has been replaced. She is feeling better today. She has mild right anterior thigh weakness which is normal after the surgery. Otherwise she is doing well. Begin discharge planning for possible discharge tomorrow. She will likely need home health Subjective 24 Hr Interval Summary Decreased pain Exam/Review of Systems Vital Signs Vitals Vital Signs Date Temp Pulse Resp B/P (MAP) Pulse Ox O2 O2 Flow FiO2 Time Delivery Rate 12/26/18 99.0 118 18 135/85 95 Room Air 02:31 (102) 12/25/18 3.0 20:15 Intake and Output 12/25/18 12/25/18 12/26/18 1515:00 23:00 07:00 IntakeIntake Total 400 ml 950 ml 200 ml OutputOutput Total 1500 ml 1000 ml BalanceBalance -1100 ml -50 ml 200 ml Exam Free Text/Dictation Mild right thigh weakness Results Result Diagram: 12/26/18 0457 12/26/18 0457 ANTONIO TRUJILLO MD Dec 26, 2018 07:57
[2018-12-26] MEDS: DOCUSATE SODIUM 100 MG CAP PO SCH ×2 (09:11→23:13)
--- NOTE | 2018-12-26 09:18 | CONS ---
Assessment/Plan Assessment/Plan Hospital Course (Demo Recall) 1. Miroslava is now 3 days postop a lumbar spine surgery that was done in 2 stages . She is feeling better today. She has been afebrile. She has been tachycardic and her blood pressure has been low . An EKG was done which showed sinus tachycardia with some PVCs. I did order another bolus of normal saline to increase the blood pressure and to correct the tachycardia.. Labs are ordered for tomorrow. Consultation Date/Type/Reason Admit Date/Time Dec 23, 2018 at 10:13 Initial Consult Date Type of Consult medicine Date/Time of Note DATE: 12/26/18 TIME: 09:03 24 HR Interval Summary Free Text/Dictation Miroslava is awake and alert . Having less pain today but is tachycardic and hypotensive . She was same last night and received a bolus of NS fluid . Constitutional: improved Exam/Review of Systems Exam Vitals Vital Signs Date Temp Pulse Resp B/P (MAP) Pulse Ox O2 O2 Flow FiO2 Time Delivery Rate 12/26/18 96/57 (70) 08:32 12/26/18 98.7 79 95 Room Air 08:15 12/26/18 18 05:00 12/25/18 3.0 20:15 Intake and Output 12/25/18 12/25/18 12/26/18 1515:00 23:00 07:00 IntakeIntake Total 400 ml 950 ml 200 ml OutputOutput Total 1500 ml 1000 ml BalanceBalance -1100 ml -50 ml 200 ml Constitutional: alert, oriented, well developed Respiratory: clear to auscultation, normal air movement Cardiovascular: regular rate and rhythm Gastrointestinal: soft, non-tender Musculoskeletal: nl extremities to inspection Results Result Diagram: 12/26/18 0457 12/26/18 0457 Results 24hrs Laboratory Tests Test 12/26/18 04:57 White Blood Count 14.9 #H Red Blood Count 4.37 Hemoglobin 10.9 L Hematocrit 35.0 L Mean Corpuscular Volume 80.1 L Mean Corpuscular Hemoglobin 24.9 L Mean Corpuscular Hemoglobin Concent 31.1 L Red Cell Distribution Width 14.6 H Platelet Count 344 # Mean Platelet Volume 8.7 Immature Granulocytes % 0.300 Neutrophils % 78.0 H Lymphocytes % 13.5 L Monocytes % 7.8 Eosinophils % 0.3 Basophils % 0.1 Nucleated Red Blood Cells % 0.0 Immature Granulocytes # 0.050 H Neutrophils # 11.6 H Lymphocytes # 2.0 Monocytes # 1.2 H Eosinophils # 0.1 Basophils # 0.0 Nucleated Red Blood Cells # 0.0 Sodium Level 133 L Potassium Level 3.8 Chloride Level 97 Carbon Dioxide Level 26 Anion Gap 10 # Blood Urea Nitrogen 10 Creatinine 0.75 Est Glomerular Filtrat Rate mL/min > 60 Glucose Level 133 Calcium Level 8.5 Magnesium Level 2.0 Medications Medication Current Medications Levothyroxine Sodium (Synthroid) 150 mcg BEFORE BREAKFAST PO Last administered on 12/26/18 05:50; Admin Dose 150 MCG; Start 12/24/18 at 07:00 Potassium Chloride/Dextrose/ Sod Cl 1,000 ml @ 100 mls/hr Q10H IV Last administered on 12/25/18 15:27; Admin Dose 100 MLS/HR; Start 12/24/18 at 10:07 Acetaminophen/ Hydrocodone Bitart ([place] (10/325)) 1 tab Q4H PRN PO .PAIN 1-5; Start 12/24/18 at 10:30 Acetaminophen/ Hydrocodone Bitart ([place] (10/325)) 2 tab Q4H PRN PO .PAIN 6-10; Start 12/24/18 at 10:30 Hydromorphone HCl (Dilaudid) 0.2 mg Q1H PRN IV .BREAKTHROUGH PAIN Last administered on 12/24/18 17:37; Admin Dose 0.2 MG; Start 12/24/18 at 10:30 Ondansetron HCl (Zofran Inj) 4 mg Q6H PRN IV NAUSEA/VOMITING; Start 12/24/18 at 10:30 Bisacodyl (Dulcolax Supp) 10 mg DAILY PRN [place] .CONSTIPATION Last administered on 12/25/18 23:54; Admin Dose 10 MG; Start 12/24/18 at 10:30 Docusate Sodium (Colace) 100 mg BID PO Last administered on 12/25/18 20:28; Admin Dose 100 MG; Start 12/24/18 at 21:00 Al Hydrox/Mg Hydrox/Simethicone (Mag-Al Plus) 15 ml Q6H PRN PO .CONSTIPATION/DYSPEPSIA Last administered on 12/26/18 03:47; Admin Dose 15 ML; Start 12/24/18 at 10:30 Acetaminophen (Tylenol Tab) 650 mg Q4H PRN PO POPE OR TEMP GREATER THAN 101.3F Last administered on 12/25/18 00:39; Admin Dose 650 MG; Start 12/24/18 at 10:30 Cyclobenzaprine HCl (Flexeril) 10 mg TID PRN PO .MUSCLE SPASMS Last administered on 12/26/18 03:47; Admin Dose 10 MG; Start 12/24/18 at 10:30 Phenol (Cepastat Lozenge) 1 lozenge PRN PRN [place] .SORE THROAT Last administered on 12/24/18 21:02; Admin Dose 1 LOZENGE; Start 12/24/18 at 10:30 Diphenhydramine HCl (Benadryl) 25 mg Q6H PRN PO .ITCHING; Start 12/24/18 at 10:30 Diphenhydramine HCl (Benadryl) 25 mg Q6H PRN IV .ITCHING; Start 12/24/18 at 10:30 Naloxone HCl (Narcan) 0.2 mg Q2M PRN IV .RR 8 BREATHS/MIN OR LESS; Start 12/24/18 at 10:30 Hydromorphone HCl (Dilaudid COMMERCIAL RELIEF DRIVER) COMMERCIAL RELIEF DRIVER to be started in PACU Q4PCA IV Last administered on 12/26/18at 01:34; Admin Dose 6 MG; Start 12/24/18 at 10:30; Stop 12/26/18 at 10:00 Miscellaneous Information 1. Hold COMMERCIAL RELIEF DRIVER at 1,000... COMMERCIAL RELIEF DRIVER IV ; Start 12/24/18 at 10:30 YULIYA ROSALES MD Dec 26, 2018 09:13
[2018-12-26] MEDS ORDERED: SOD CHLORIDE 0.9% 250 ML IV ONE (09:30)
[2018-12-26] MEDS ORDERED: DIGOXIN 500 MCG INJ IV ONE (10:00)
[2018-12-26] MEDS ORDERED: HYDROCODONE/APAP (10/325) TAB PO PRN ×2 (10:00)
[2018-12-26] MEDS ORDERED: POTASSIUM CHLORIDE (SR) 20 MEQ TAB PO STA (10:01)
--- NOTE | 2018-12-26 10:01 | CONS ---
Assessment/Plan Assessment/Plan Hospital Course (Demo Recall) afib- new onset. post op lumbar surgery - rate control add digoxin 1g load (0.5mg now then 0.25mg po q 6 h) given lower bp - 2g iv mag - add Cardizem gtt as tolerated by bp, goal HR < 100 and SBP > 90 - 2d echo when hr controlled - check tsh/ft4 - add asa when safe post op, afib > 48hr consider anticoag ? viral cardiomyopathy- pt reports previous hx now resolved many years ago - try to obtain records - echo as above back pain- s/p surgery - pain control per ortho Consultation Date/Type/Reason Admit Date/Time Dec 23, 2018 at 10:13 Date of Consultation: Dec 26, 2018 Type of Consult Cardiology Reason for Consultation afib Requesting Provider: YULIYA ROSALES MD Date/Time of Note DATE: 12/26/18 TIME: 09:59 Hx of Present Illness Patient is a 58-year-old woman with past medical history of possible cardiomyopathy which he states is resolved. Patient admitted to [facility] for lumbar spine surgery. Patient had been doing well postoperatively with pain control with WIRE BOUND BOX MACHINE OPERATOR pump. However this a.m. patient was found to be tachycardic with lower blood pressure. Patient states she was asymptomatic no chest pain palpitations dizziness lightheadedness. Denies any previous history of arrhythmia. Patient was transferred to telemetry floor. Constitutional: no complaints Eyes: no complaints ENT: no complaints Respiratory: no complaints Cardiovascular: no complaints Gastrointestinal: no complaints Genitourinary: no complaints Musculoskeletal: back pain Skin: no complaints Neurologic: no complaints Endocrine: no complaints Lymphatic: no complaints Psychological: no complaints, nl mood/affect Immunologic: no complaints Past Medical History Hypothyroidism, viral cardiomyopathy Home Meds Reported Medications Hydrocodone/Acetaminophen (Hydrocodone-Acetamin 10-325 mg) 1 Each Tablet, 1 TAB ORAL Q6 PRN for PAIN LEVEL 7-10 12/23/18 Levothyroxine Sodium* (Levothyroxine Sodium*) 150 Mcg Tablet, 150 MCG PO BEFORE BREAKFAST, #30 TAB 12/23/18 Discontinued Reported Medications Levothyroxine Sodium (Levothroid) 125 Mcg Tablet, 125 MCG PO DAILY 03/05/12 Hydrocodone Bit-Acetaminophen* ([place]*) 1 Tab Tab, 1 TAB PO TID 03/05/12 Medications Current Medications Levothyroxine Sodium (Synthroid) 150 mcg BEFORE BREAKFAST PO Last administered on 12/26/18 05:50; Admin Dose 150 MCG; Start 12/24/18 at 07:00 Potassium Chloride/Dextrose/ Sod Cl 1,000 ml @ 100 mls/hr Q10H IV Last administered on 12/25/18 15:27; Admin Dose 100 MLS/HR; Start 12/24/18 at 10:07 Acetaminophen/ Hydrocodone Bitart ([place] (10/325)) 1 tab Q4H PRN PO .PAIN 1-5; Start 12/24/18 at 10:30 Acetaminophen/ Hydrocodone Bitart ([place] (10/325)) 2 tab Q4H PRN PO .PAIN 6-10; Start 12/24/18 at 10:30 Hydromorphone HCl (Dilaudid) 0.2 mg Q1H PRN IV .BREAKTHROUGH PAIN Last administered on 12/24/18 17:37; Admin Dose 0.2 MG; Start 12/24/18 at 10:30 Ondansetron HCl (Zofran Inj) 4 mg Q6H PRN IV NAUSEA/VOMITING; Start 12/24/18 at 10:30 Bisacodyl (Dulcolax Supp) 10 mg DAILY PRN [place] .CONSTIPATION Last administered on 12/25/18 23:54; Admin Dose 10 MG; Start 12/24/18 at 10:30 Docusate Sodium (Colace) 100 mg BID PO Last administered on 12/26/18 09:11; Admin Dose 100 MG; Start 12/24/18 at 21:00 Al Hydrox/Mg Hydrox/Simethicone (Mag-Al Plus) 15 ml Q6H PRN PO .CONSTIPATION/DYSPEPSIA Last administered on 12/26/18 03:47; Admin Dose 15 ML; Start 12/24/18 at 10:30 Acetaminophen (Tylenol Tab) 650 mg Q4H PRN PO POPE OR TEMP GREATER THAN 101.3F Last administered on 12/25/18 00:39; Admin Dose 650 MG; Start 12/24/18 at 10:30 Cyclobenzaprine HCl (Flexeril) 10 mg TID PRN PO .MUSCLE SPASMS Last administere d on 12/26/18 03:47; Admin Dose 10 MG; Start 12/24/18 at 10:30 Phenol (Cepastat Lozenge) 1 lozenge PRN PRN MT .SORE THROAT Last administered on 12/24/18at 21:02; Admin Dose 1 LOZENGE; Start 12/24/18 at 10:30 Diphenhydramine HCl (Benadryl) 25 mg Q6H PRN PO .ITCHING; Start 12/24/18 at 10:30 Diphenhydramine HCl (Benadryl) 25 mg Q6H PRN IV .ITCHING; Start 12/24/18 at 10:30 Naloxone HCl (Narcan) 0.2 mg Q2M PRN IV .RR 8 BREATHS/MIN OR LESS; Start 12/24/18 at 10:30 Hydromorphone HCl (Dilaudid WIRE BOUND BOX MACHINE OPERATOR) WIRE BOUND BOX MACHINE OPERATOR to be started in PACU Q4PCA IV Last administered on 12/26/18at 01:34; Admin Dose 6 MG; Start 12/24/18 at 10:30; Stop 12/26/18 at 10:00 Miscellaneous Information 1. Hold WIRE BOUND BOX MACHINE OPERATOR at 1,000... WIRE BOUND BOX MACHINE OPERATOR IV ; Start 12/24/18 at 10:30 Sodium Chloride 250 ml @ 250 mls/hr Q1H ONCE IV Last administered on 12/26/18at 09:11; Admin Dose 250 MLS/HR; Start 12/26/18 at 09:30; Stop 12/26/18 at 10:29 Allergies: Coded Allergies: acetaminophen (Verified Allergy, Unknown, nauseous, 12/23/18) codeine (Verified Allergy, Unknown, nauseous, 12/23/18) morphine (Verified Allergy, Unknown, hallucinations, 12/23/18) oxycodone (Verified Allergy, Unknown, nauseous, 12/23/18) Uncoded Allergies: ANTIINFLAMMATORY (Allergy, Unknown, 03/05/12) Past Surgical History , gastric bypass, total hysterectomy, tonsillectomy Family History Significant Family History: other (No high risk cardiac history) Social History Alcohol Use: none Smoking Status: Never smoker Drug Use: none Exam/Review of Systems Exam Vitals Vital Signs Date Temp Pulse Resp B/P (MAP) Pulse Ox O2 O2 Flow FiO2 Time Delivery Rate 12/26/18 96/57 (70) 08:32 12/26/18 98.7 79 95 Room Air 08:15 12/26/18 18 05:00 12/25/18 3.0 20:15 Intake and Output 12/25/18 12/25/18 12/26/18 1515:00 23:00 07:00 IntakeIntake Total 400 ml 950 ml 200 ml OutputOutput Total 1500 ml 1000 ml BalanceBalance -1100 ml -50 ml 200 ml Constitutional: alert, oriented, well developed Psych: no complaints, nl mood/affect Head: normocephalic, atraumatic Eyes: nl conjunctiva, EOMI, nl lids ENMT: nl external ears & nose, nl lips & teeth, nl nasal mucosa & septum Neck: supple, non-tender; No jvd, No bruits Respiratory: clear to auscultation, normal air movement Cardiovascular: nl pulses, irregular rhythm; No diastolic murmur, No edema, No gallop, No jugular venous distention (JVD), No systolic murmur, No S3 Gastrointestinal: soft, non-tender Musculoskeletal: nl extremities to inspection, nl gait and stance Extremities: normal pulses Neurological: LIEUTENANT COLONEL II-XII intact, nl mental status, nl speech, nl strength Skin: nl turgor Results Result Diagram: 12/26/18 0457 12/26/18 0457 Results 24hrs Laboratory Tests Test 12/26/18 04:57 12/26/18 09:27 White Blood Count 14.9 #H Red Blood Count 4.37 Hemoglobin 10.9 L Hematocrit 35.0 L Mean Corpuscular Volume 80.1 L Mean Corpuscular Hemoglobin 24.9 L Mean Corpuscular Hemoglobin Concent 31.1 L Red Cell Distribution Width 14.6 H Platelet Count 344 # Mean Platelet Volume 8.7 Immature Granulocytes % 0.300 Neutrophils % 78.0 H Lymphocytes % 13.5 L Monocytes % 7.8 Eosinophils % 0.3 Basophils % 0.1 Nucleated Red Blood Cells % 0.0 Immature Granulocytes # 0.050 H Neutrophils # 11.6 H Lymphocytes # 2.0 Monocytes # 1.2 H Eosinophils # 0.1 Basophils # 0.0 Nucleated Red Blood Cells # 0.0 Sodium Level 133 L Potassium Level 3.8 Chloride Level 97 Carbon Dioxide Level 26 Anion Gap 10 # Blood Urea Nitrogen 10 Creatinine 0.75 Est Glomerular Filtrat Rate mL/min > 60 Glucose Level 133 Calcium Level 8.5 Magnesium Level 2.0 Bedside Glucose 135 Imaging Imaging EKG images were reviewed: Atrial fibrillation with rapid ventricular response. Also has EKGs with intermittent PVCs. Chest x-ray, report reviewed in EMR. Medications Medication Current Medications Levothyroxine Sodium (Synthroid) 150 mcg BEFORE BREAKFAST PO Last administered on 12/26/18 05:50; Admin Dose 150 MCG; Start 12/24/18 at 07:00 Potassium Chloride/Dextrose/ Sod Cl 1,000 ml @ 100 mls/hr Q10H IV Last administered on 12/25/18 15:27; Admin Dose 100 MLS/HR; Start 12/24/18 at 10:07 Acetaminophen/ Hydrocodone Bitart ([place] (10/325)) 1 tab Q4H PRN PO .PAIN 1-5; Start 12/24/18 at 10:30 Acetaminophen/ Hydrocodone Bitart ([place] (10/325)) 2 tab Q4H PRN PO .PAIN 6-10; Start 12/24/18 at 10:30 Hydromorphone HCl (Dilaudid) 0.2 mg Q1H PRN IV .BREAKTHROUGH PAIN Last administered on 12/24/18 17:37; Admin Dose 0.2 MG; Start 12/24/18 at 10:30 Ondansetron HCl (Zofran Inj) 4 mg Q6H PRN IV NAUSEA/VOMITING; Start 12/24/18 at 10:30 Bisacodyl (Dulcolax Supp) 10 mg DAILY PRN MA .CONSTIPATION Last administered on 12/25/18 23:54; Admin Dose 10 MG; Start 12/24/18 at 10:30 Docusate Sodium (Colace) 100 mg BID PO Last administered on 12/26/18 09:11; Admin Dose 100 MG; Start 12/24/18 at 21:00 Al Hydrox/Mg Hydrox/Simethicone (Mag-Al Plus) 15 ml Q6H PRN PO .CONST IPATION/DYSPEPSIA Last administered on 12/26/18 03:47; Admin Dose 15 ML; Start 12/24/18 at 10:30 Acetaminophen (Tylenol Tab) 650 mg Q4H PRN PO POPE OR TEMP GREATER THAN 101.3F Last administered on 12/25/18 00:39; Admin Dose 650 MG; Start 12/24/18 at 10:30 Cyclobenzaprine HCl (Flexeril) 10 mg TID PRN PO .MUSCLE SPASMS Last administered on 12/26/18at 03:47; Admin Dose 10 MG; Start 12/24/18 at 10:30 Phenol (Cepastat Lozenge) 1 lozenge PRN PRN MT .SORE THROAT Last administered on 12/24/18at 21:02; Admin Dose 1 LOZENGE; Start 12/24/18 at 10:30 Diphenhydramine HCl (Benadryl) 25 mg Q6H PRN PO .ITCHING; Start 12/24/18 at 10:30 Diphenhydramine HCl (Benadryl) 25 mg Q6H PRN IV .ITCHING; Start 12/24/18 at 1 0:30 Naloxone HCl (Narcan) 0.2 mg Q2M PRN IV .RR 8 BREATHS/MIN OR LESS; Start 12/24/18 at 10:30 Hydromorphone HCl (Dilaudid WIRE BOUND BOX MACHINE OPERATOR) WIRE BOUND BOX MACHINE OPERATOR to be started in PACU Q4PCA IV Last administered on 12/26/18at 01:34; Admin Dose 6 MG; Start 12/24/18 at 10:30; Stop 12/26/18 at 10:00 Miscellaneous Information 1. Hold WIRE BOUND BOX MACHINE OPERATOR at 1,000... WIRE BOUND BOX MACHINE OPERATOR IV ; Start 12/24/18 at 10:30 Sodium Chloride 250 ml @ 250 mls/hr Q1H ONCE IV Last administered on 12/26/18at 09:11; Admin Dose 250 MLS/HR; Start 12/26/18 at 09:30; Stop 12/26/18 at 10:29 ALLEY MACK Dec 26, 2018 10:01
[2018-12-26] MEDS ORDERED: DILTIAZEM-D5W 125MG/125ML DRIP 125 ML IV SCH (11:30)
[2018-12-26] MEDS ORDERED: MAGNESIUM SULFATE 2 GM/50 ML 50 ML IVPB ONE (11:30)
[2018-12-26] MEDS: DIGOXIN 0.25 MG TAB PO SCH ×2 (15:57→23:14)
--- NOTE | 2018-12-26 17:02 | RADRPT ---
Vent Rate: 160 bpm RR Interval: 0 msec [place] Interval: 0 msec QRS Duration: 94 msec QT Interval: 284 msec QTC Interval: 463 msec P-R-T [place]: 0 - 9 - 103 degrees Atrial fibrillation with rapid ventricular response Nonspecific ST and T wave abnormality , probably digitalis effect Abnormal ECG Electronically Signed By: Addison Sams
--- NOTE | 2018-12-26 17:07 | RADRPT ---
Vent Rate: 130 bpm RR Interval: 0 msec MT Interval: 148 msec QRS Duration: 88 msec QT Interval: 302 msec QTC Interval: 444 msec P-R-T [place]: 27 - -5 - 33 degrees Sinus tachycardia Minimal voltage criteria for LVH, may be normal variant Nonspecific ST abnormality Abnormal ECG Electronically Signed By: Addison Sams
[2018-12-26] MEDS: HYDROCODONE/APAP (10/325) TAB PO PRN (17:44)
[2018-12-26] MEDS: HYDROmorphONE 0.5 MG/0.5 ML SYG IV PRN (23:05)
[2018-12-27] VITALS (12 sets, daily range): BP systolic 85–116; BP diastolic 54–79; PULSE 86–102; RESP 18–22
[2018-12-27] MEDS: DIGOXIN 0.25 MG TAB PO SCH
[2018-12-27] MEDS: CYCLOBENZAPRINE 10 MG TAB PO PRN ×3 (00:04→20:43)
[2018-12-27] MEDS: HYDROCODONE/APAP (10/325) TAB PO PRN ×6 (00:10→20:44)
[2018-12-27] MEDS: LEVOTHYROXINE 150 MCG TAB PO SCH (06:50)
[2018-12-27] MEDS: DOCUSATE SODIUM 100 MG CAP PO SCH ×2 (08:09→20:43)
[2018-12-27] MEDS: D5W-0.45 NACL + KCL 20 MEQ 1,000 ML IV SCH (08:11)
--- NOTE | 2018-12-27 08:19 | PN ---
Date/Time of Note Date/Time of Note DATE: 12/27/18 TIME: 08:08 Assessment/Plan Lines/Catheters IV Catheter Type (from Nrsg): Peripheral IV [place] in Place (from Nrsg): Yes Assessment/Plan Assessment/Plan POD #4/3 s/p L2-S1 fusion from a surgical standpoint, patient is stable for D/C and i would like her to continue with PT and ambulation while she remains inpatient from a surgical standpoint patient may be placed on ASA or other anticoag as needed per cardiology continue pain control will continue to monitor H/H and mag levels while inpatient today's labs reviewed, Hct decreased to 27.4 from 35 on 12/26 - cardiology to determine whether a transfusion is appropriate and whether she is cleared to resume PT cardiology note reviewed - mag repleted, quang D/C'ed, continue digoxin, plan for 2d echo, check tsh/free T4 Subjective 24 Hr Interval Summary pt is comfortable, eager to go home c/o post-op LBP left leg pain resolved right thigh heaviness denies dizziness/CP/SOB Exam/Review of Systems Vital Signs Vitals Vital Signs Date Temp Pulse Resp B/P (MAP) Pulse Ox O2 O2 Flow FiO2 Time Delivery Rate 12/27/18 96 08:07 12/27/18 97.6 22 116/79 96 Nasal 3.0 07:55 (91) Cannula Intake and Output 12/26/18 12/26/18 12/27/18 1515:00 23:00 07:00 IntakeIntake Total 1000 ml 1975 ml 4900 ml OutputOutput Total 2200 ml 4000 ml BalanceBalance 1000 ml -225 ml 900 ml Exam Free Text/Dictation AOx3 comfortable, NAD right quad strength 4+/5 TA and EHL strength 5-/5 bilaterally, sensation intact BLE no calf TTP/cording, no BLE edema, pulses palpable incisions c/d/i Hct decreased to 27.4 (12/27) from 35 (12/26) HR 93, BP 106/62 Results Result Diagram: 12/27/18 0522 12/27/18 0523 BETHANY RIZZO PA-C Dec 27, 2018 08:18
--- NOTE | 2018-12-27 08:41 | CONS ---
Assessment/Plan Assessment/Plan Hospital Course (Demo Recall) 1. Miroslava is now 4 days postop a lumbar spine surgery that was done in 2 stages . Yesterday morning she developed atrial fibrillation with rapid ventricular response. She was asymptomatic with this. She was transferred to the telemetry floor . She was given intravenous medication including digoxin and Cardizem and she converted to sinus rhythm. She remains in sinus rhythm. She has no chest pain or shortness of breath. She is now getting a echocardiogram. 2. She will start physical therapy today. If she tolerates physical therapy and has no further arrhythmias then she could potentially go home tomorrow. Will await evaluation by Dr. Reyez her livestock slaughterer. Her orthopedic surgeon says that she could start aspirin if necessary and could be discharged when cleared by cardiology. Consultation Date/Type/Reason Admit Date/Time Dec 23, 2018 at 10:13 Initial Consult Date Type of Consult medicine Requesting Provider: YULIYA ROSALES MD Date/Time of Note DATE: 12/27/18 TIME: 08:36 24 HR Interval Summary Free Text/Dictation Miroslava is now on the telemetry floor after having an episode of atrial fibrillation with RVR. She is now in sinus rhythm and is feeling better. Constitutional: no complaints, improved Exam/Review of Systems Exam Vitals Vital Signs Date Temp Pulse Resp B/P (MAP) Pulse Ox O2 O2 Flow FiO2 Time Delivery Rate 12/27/18 96 08:07 12/27/18 97.6 22 116/79 96 Nasal 3.0 07:55 (91) Cannula Intake and Output 12/26/18 12/26/18 12/27/18 1414:59 22:59 06:59 IntakeIntake Total 1000 ml 1975 ml 4900 ml OutputOutput Total 2200 ml 4000 ml BalanceBalance 1000 ml -225 ml 900 ml Constitutional: alert, oriented, well developed Respiratory: clear to auscultation, normal air movement Cardiovascular: regular rate and rhythm Gastrointestinal: soft Musculoskeletal: nl extremities to inspection Results Result Diagram: 12/27/1852112/27/18 05 Results 24hrs Laboratory Tests Test 12/26/18 09:27 12/26/18 15:00 12/27/18 05:22 12/27/18 05:23 Bedside Glucose 135 Urine Color YELLOW Urine Clarity CLEAR Urine pH 5.0 Urine Specific 1.006 [place] Urine Ketones NEGATIVE Urine Nitrite NEGATIVE Urine Bilirubin NEGATIVE Urine Urobilinogen NEGATIVE Urine Leukocyte NEGATIVE Esterase Urine Microscopic 3 RBC Urine Microscopic 2 WBC Urine Mucus FEW A Urine Hemoglobin 2+ H Urine Glucose NEGATIVE Urine Total Protein NEGATIVE White Blood Count 7.7 # Red Blood Count 3.40 #L Hemoglobin 8.4 #L Hematocrit 27.4 #L Mean Corpuscular 80.6 L Volume Mean Corpuscular 24.7 L Hemoglobin Mean Corpuscular 30.7 L Hemoglobin Concent Red Cell 14.4 Distribution Width Platelet Count 230 # Mean Platelet Volume 8.9 Immature 0.400 Granulocytes % Neutrophils % 67.3 Lymphocytes % 20.2 Monocytes % 8.9 Eosinophils % 3.1 Basophils % 0.1 Nucleated Red Blood 0.0 Cells % Immature 0.030 Granulocytes # Neutrophils # 5.2 Lymphocytes # 1.6 Monocytes # 0.7 Eosinophils # 0.2 Basophils # 0.0 Nucleated Red Blood 0.0 Cells # Sodium Level 138 Potassium Level 4.0 Chloride Level 107 # Carbon Dioxide Level 27 Anion Gap 4 L Blood Urea Nitrogen 10 Creatinine 0.55 Est Glomerular > 60 Filtrat Rate mL/min Glucose Level 153 Calcium Level 8.0 L Magnesium Level 2.3 Medications Medication Current Medications Levothyroxine Sodium (Synthroid) 150 mcg BEFORE BREAKFAST PO Last administered on 12/27/18at 06:50; Admin Dose 150 MCG; Start 12/24/18 at 07:00 Acetaminophen/ Hydrocodone Bitart ([place] (10/325)) 1 tab Q4H PRN PO .PAIN 1-5 Last administered on 12/27/18at 08:09; Admin Dose 1 TAB; Start 12/24/18 at 10:30 Acetaminophen/ Hydrocodone Bitart ([place] (10/325)) 2 tab Q4H PRN PO .PAIN 6-10 Last administered on 12/27/18at 00:10; Admin Dose 2 TAB; Start 12/24/18 at 10:30 Hydromorphone HCl (Dilaudid) 0.2 mg Q1H PRN IV .BREAKTHROUGH PAIN Last administered on 12/26/18at 23:05; Admin Dose 0.2 MG; Start 12/24/18 at 10:30 Ondansetron HCl (Zofran Inj) 4 mg Q6H PRN IV NAUSEA/VOMITING; Start 12/24/18 at 10:30 Bisacodyl (Dulcolax Supp) 10 mg DAILY PRN [place] .CONSTIPATION Last administered on 12/25/18 23:54; Admin Dose 10 MG; Start 12/24/18 at 10:30 Docusate Sodium (Colace) 100 mg BID PO Last administered on 12/27/18 08:09; Admin Dose 100 MG; Start 12/24/18 at 21:00 Al Hydrox/Mg Hydrox/Simethicone (Mag-Al Plus) 15 ml Q6H PRN PO .CONSTIPATION/DYSPEPSIA Last administered on 12/26/18 03:47; Admin Dose 15 ML; Start 12/24/18 at 10:30 Acetaminophen (Tylenol Tab) 650 mg Q4H PRN PO POPE OR TEMP GREATER THAN 101.3F Last administered on 12/25/18 00:39; Admin Dose 650 MG; Start 12/24/18 at 10:30 Cyclobenzaprine HCl (Flexeril) 10 mg TID PRN PO .MUSCLE SPASMS Last administered on 12/27/18 08:09; Admin Dose 10 MG; Start 12/24/18 at 10:30 Phenol (Cepastat Lozenge) 1 lozenge PRN PRN MT .SORE THROAT Last administered on 12/24/18 21:02; Admin Dose 1 LOZENGE; Start 12/24/18 at 10:30 Diphenhydramine HCl (Benadryl) 25 mg Q6H PRN PO .ITCHING; Start 12/24/18 at 10:30 Diphenhydramine HCl (Benadryl) 25 mg Q6H PRN IV .ITCHING; Start 12/24/18 at 10:30 Naloxone HCl (Narcan) 0.2 mg Q2M PRN IV .RR 8 BREATHS/MIN OR LESS; Start 12/24/18 at 10:30 Miscellaneous Information 1. Hold PRODUCTION SUPPORT ENGINEER at 1,000... PRODUCTION SUPPORT ENGINEER IV ; Start 12/24/18 at 10:30 Lactulose (Enulose) 20 gm DAILY PRN PO CONSTIPATION; Start 12/27/18 at 09:00 YULIYA ROSALES MD Dec 27, 2018 08:41
[2018-12-27] MEDS ORDERED: LACTULOSE 30ML CUP PO PRN (09:00)
[2018-12-27] MEDS: HYDROmorphONE 0.5 MG/0.5 ML SYG IV PRN (11:12)
--- NOTE | 2018-12-27 15:54 | RADRPT ---
Echocardiogram Report Patient Name: CARLOS EDUARDO GUTIERREZatient ID: [id number] : [id number] (58y 8m)Study Date: 12/27/2018 8:09:13 AM Gender: FAccession #: [id number] Tech: Tres Rowe [facility] Location: [address] Ref.Physician: JACK MACK Height(Cm): BSA: Weight(Kg): Quality: AdequateAccount #: Procedures: Echocardiographic Report: Transthoracic echocardiogram with complete 2D, M-Mode, and doppler examination. Indications: Atrial Fibrillation. Measurements: 2D/M Mode Doppler Measurement Value Normal Range Measurement Value Normal Range LVIDd 2D 4.6 [ 3.8 - 5.2 ] cm AV Peak Bruce 1.7 [ 100.0 - 170.0 ] cm/sec LVIDs 2D 3.2 [ 2.2 - 3.5 ] cm AV Peak PG 12.0 [ 2.0 - 9.0 ] mmHg LVPWd 2D 1.1 [ 0.6 - 0.9 ] cm LVOT Peak Bruce 1.2 [ 70.0 - 110.0 ] cm/sec IVSd 2D 1.2 [ 0.6 - 0.9 ] cm LVOT Peak PG 6.0 [ 2.0 - 6.0 ] mmHg IVS/LVPW 2D 1.1 ratio MV E Peak Bruce 0.7 [ 60.0 - 130.0 ] cm/sec AoR Diam 2D 2.6 [ 2.3 - 3.1 ] cm MV A Peak Bruce 1.2 [ 100.0 - 120.0 ] cm/sec LA/Ao 2D 2 ratio MV E/A 0.6 [ 0.8 - 1.5 ] ratio LA Dimen 2D 4.0 [ 2.7 - 3.8 ] cm MV Decel Time 141 [ 104 - 258 ] msec MV E/A 0.6 [ 0.8 - 1.5 ] ratio TR Peak Bruce 3.1 [ 100.0 - 280.0 ] cm/sec TR Peak PG 39.0 mmHg RVSP 42.0 [ 10.0 - 36.0 ] mmHg Findings: Left Ventricle: Lower limits of normal systolic function. Normal left ventricular cavity size. Mild concentric left ventricular hypertrophy. Paradoxical septal motion consistent with IVCD or bundle branch block. Ejection fraction is visually estimated at 50 %. Tissue Doppler/Mitral Doppler indices are consistent with impaired relaxation (Stage I diastolic dysfunction). Right Ventricle: Normal right ventricular systolic function. Moderate enlargement of right ventricle. Left Atrium: The left atrium is normal in size. There is mild enlargement of left atrium. Right Atrium: There is moderate enlargement of right atrium. Mitral Valve: Normal appearance of the mitral valve. Mild mitral annular calcification. Trace mitral regurgitation. Aortic Valve: No hemodynamically significant aortic stenosis by doppler. Aortic cusps appear mildly calcified. Mild aortic valve regurgitation. Tricuspid Valve: Normal appearance of the tricuspid valve. Right ventricular systolic pressure is consistent with moderate pulmonary hypertension. Estimated peak PA systolic pressure 42 mmHg. There is mild tricuspid regurgitation. Pulmonic Valve: Normal pulmonic valve appearance. Pericardium: Normal pericardium with no significant pericardial effusion. Aorta: Normal aortic root. IVC: Normal size and normal respiratory collapse consistent with normal right atrial pressure. Conclusions: Lower limits of normal systolic function. Normal left ventricular cavity size. Mild concentric left ventricular hypertrophy. Paradoxical septal motion consistent with IVCD or bundle branch block. Ejection fraction is visually estimated at 50 %. Tissue Doppler/Mitral Doppler indices are consistent with impaired relaxation (Stage I diastolic dysfunction). Normal right ventricular systolic function. Moderate enlargement of right ventricle. The left atrium is normal in size. There is mild enlargement of left atrium. No hemodynamically significant aortic stenosis by doppler. Aortic cusps appear mildly calcified. Mild aortic valve regurgitation. Normal appearance of the tricuspid valve. Right ventricular systolic pressure is consistent with moderate pulmonary hypertension. Estimated peak PA systolic pressure 42 mmHg. There is mild tricuspid regurgitation. Normal pericardium with no significant pericardial effusion. Normal aortic root. Normal size and normal respiratory collapse consistent with normal right atrial pressure. No Vegetation, masses, or thrombi seen. Electronically Signed By: Jack Mack 2018-12-27 15:54:25 PDT
--- NOTE | 2018-12-27 18:01 | CONS ---
Assessment/Plan Assessment/Plan Hospital Course (Demo Recall) afib- new onset. post op lumbar surgery. spon converted to NSR a few hours after onset. denies previous hx - add metop xl 25mg daily - unclear why hgb is lower. no anticoag given for afib. ok to hold off asa for now - check ft4 (on levothyroxine). h/o cardiomyopathy- low/normal lv systolic function. add metopr xl. obtain old records. f/u as outpt back pain- s/p surgery - pain control per ortho if no further afib episodes can d/c home Consultation Date/Type/Reason Admit Date/Time Dec 23, 2018 at 10:13 Initial Consult Date 12/26/18 Type of Consult Cardiology Requesting Provider: YULIYA ROSALES MD Date/Time of Note DATE: 12/27/18 TIME: 17:57 24 HR Interval Summary Free Text/Dictation converted to nsr. no recurrent afib. no cp/sob/palp. pt with back pain on painmedication tele reviewed NSR Detailed Summary Eyes: no complaints ENT: no complaints Respiratory: no complaints Cardiovascular: no complaints Musculoskeletal: back pain Exam/Review of Systems Exam Vitals Vital Signs Date Temp Pulse Resp B/P (MAP) Pulse Ox O2 O2 Flow FiO2 Time Delivery Rate 12/27/18 100 16:15 12/27/18 98.0 22 109/67 96 Room Air 3.0 15:59 (81) Intake and Output 12/26/18 12/26/18 12/27/18 1515:00 23:00 07:00 IntakeIntake Total 1000 ml 1975 ml 4900 ml OutputOutput Total 2200 ml 4000 ml BalanceBalance 1000 ml -225 ml 900 ml Constitutional: alert, oriented Psych: no complaints, nl mood/affect Head: normocephalic, atraumatic Eyes: nl conjunctiva ENMT: nl external ears & nose, nl lips & teeth, nl nasal mucosa & septum Neck: supple, non-tender; No jvd Respiratory: clear to auscultation, normal air movement Cardiovascular: regular rate and rhythm, nl pulses; No irregular rhythm, No S3, No S4 Gastrointestinal: soft, non-tender Musculoskeletal: nl extremities to inspection Extremities: normal pulses Neurological: STAFF RN II-XII intact, nl mental status, nl speech, nl strength Results Result Diagram: 12/27/18 0522 12/27/18 0523 Results 24hrs Laboratory Tests Test 12/27/18 05:20 12/27/18 05:22 12/27/18 05:23 Thyroid Stimulating Hormone (TSH) < 0.015 L White Blood Count 7.7 # Red Blood Count 3.40 #L Hemoglobin 8.4 #L Hematocrit 27.4 #L Mean Corpuscular Volume 80.6 L Mean Corpuscular Hemoglobin 24.7 L Mean Corpuscular Hemoglobin Concent 30.7 L Red Cell Distribution Width 14.4 Platelet Count 230 # Mean Platelet Volume 8.9 Immature Granulocytes % 0.400 Neutrophils % 67.3 Lymphocytes % 20.2 Monocytes % 8.9 Eosinophils % 3.1 Basophils % 0.1 Nucleated Red Blood Cells % 0.0 Immature Granulocytes # 0.030 Neutrophils # 5.2 Lymphocytes # 1.6 Monocytes # 0.7 Eosinophils # 0.2 Basophils # 0.0 Nucleated Red Blood Cells # 0.0 Sodium Level 138 Potassium Level 4.0 Chloride Level 107 # Carbon Dioxide Level 27 Anion Gap 4 L Blood Urea Nitrogen 10 Creatinine 0.55 Est Glomerular Filtrat Rate mL/min > 60 Glucose Level 153 Calcium Level 8.0 L Magnesium Level 2.3 Medications Medication Current Medications Levothyroxine Sodium (Synthroid) 150 mcg BEFORE BREAKFAST PO Last administered on 12/27/18 06:50; Admin Dose 150 MCG; Start 12/24/18 at 07:00 Acetaminophen/ Hydrocodone Bitart ([place] (10/325)) 1 tab Q4H PRN PO .PAIN 1-5 Last administered on 12/27/18 12:13; Admin Dose 1 TAB; Start 12/24/18 at 10:30 Acetaminophen/ Hydrocodone Bitart ([place] (10/325)) 2 tab Q4H PRN PO .PAIN 6-10 Last administered on 12/27/18 16:01; Admin Dose 2 TAB; Start 12/24/18 at 10:30 Hydromorphone HCl (Dilaudid) 0.2 mg Q1H PRN IV .BREAKTHROUGH PAIN Last administered on 12/27/18 11:12; Admin Dose 0.2 MG; Start 12/24/18 at 10:30 Ondansetron HCl (Zofran Inj) 4 mg Q6H PRN IV NAUSEA/VOMITING; Start 12/24/18 at 10:30 Bisacodyl (Dulcolax Supp) 10 mg DAILY PRN [place] .CONSTIPATION Last administered on 12/25/18 23:54; Admin Dose 10 MG; Start 12/24/18 at 10:30 Docusate Sodium (Colace) 100 mg BID PO Last administered on 12/27/18 08:09; Admin Dose 100 MG; Start 12/24/18 at 21:00 Al Hydrox/Mg Hydrox/Simethicone (Mag-Al Plus) 15 ml Q6H PRN PO .CONSTIPATION/DYSPEPSIA Last administered on 12/26/18 03:47; Admin Dose 15 ML; Start 12/24/18 at 10:30 Acetaminophen (Tylenol Tab) 650 mg Q4H PRN PO POPE OR TEMP GREATER THAN 101.3F Last administered on 12/25/18 00:39; Admin Dose 650 MG; Start 12/24/18 at 10:30 Cyclobenzaprine HCl (Flexeril) 10 mg TID PRN PO .MUSCLE SPASMS Last administered on 12/27/18 08:09; Admin Dose 10 MG; Start 12/24/18 at 10:30 Phenol (Cepastat Lozenge) 1 lozenge PRN PRN [place] .SORE THROAT Last administered on 12/24/18 21:02; Admin Dose 1 LOZENGE; Start 12/24/18 at 10:30 Diphenhydramine HCl (Benadryl) 25 mg Q6H PRN PO .ITCHING; Start 12/24/18 at 10:30 Diphenhydramine HCl (Benadryl) 25 mg Q6H PRN IV .ITCHING; Start 12/24/18 at 10:30 Naloxone HCl (Narcan) 0.2 mg Q2M PRN IV .RR 8 BREATHS/MIN OR LESS; Start 12/24/18 at 10:30 Miscellaneous Information 1. Hold QUALITY CONTROL TESTER at 1,000... QUALITY CONTROL TESTER IV ; Start 12/24/18 at 10:30 Lactulose (Enulose) 20 gm DAILY PRN PO CONSTIPATION Last administered on 12/27/18 12:13; Admin Dose 20 GM; Start 12/27/18 at 09:00 ALLEY MACK Dec 27, 2018 18:01
[2018-12-28] VITALS (9 sets, daily range): BP systolic 91–117; BP diastolic 61–77; PULSE 61–107; RESP 16–20
[2018-12-28] MEDS: HYDROmorphONE 0.5 MG/0.5 ML SYG IV PRN ×3 (02:11→11:51)
[2018-12-28] MEDS: CYCLOBENZAPRINE 10 MG TAB PO PRN (05:48)
[2018-12-28] MEDS: LEVOTHYROXINE 150 MCG TAB PO SCH (06:21)
[2018-12-28] MEDS: HYDROCODONE/APAP (10/325) TAB PO PRN ×2 (08:27→15:49)
[2018-12-28] MEDS: DOCUSATE SODIUM 100 MG CAP PO SCH (08:27)
[2018-12-28] MEDS ORDERED: METOPROLOL (XL) 25 MG TAB PO SCH (09:00)
--- NOTE | 2018-12-28 09:10 | CONS ---
Assessment/Plan Assessment/Plan Hospital Course (Demo Recall) afib- new onset. post op lumbar surgery. spon converted to NSR a few hours after onset. denies previous hx - cont metop xl 12.5 mg daily as tolerated by bp - ft4 slightly high, adjustment per primary if needed - asa 81mg daily if safe from surgical perspective, hgb stable - ok to d/c home, can f/u as outpt back pain- s/p surgery - pain control per ortho Consultation Date/Type/Reason Admit Date/Time Dec 23, 2018 at 10:13 Initial Consult Date 12/26/18 Type of Consult Cardiology Requesting Provider: YULIYA ROSALES MD Date/Time of Note DATE: 12/28/18 TIME: 09:06 24 HR Interval Summary Free Text/Dictation no acute events. cont to have back pain. no chest pain/sob/palp. no afib episodes tele reviewed no afib, has sinus tachy at times when in pain. nsr at night Detailed Summary Eyes: no complaints ENT: no complaints Respiratory: no complaints Cardiovascular: no complaints Musculoskeletal: back pain Exam/Review of Systems Exam Vitals Vital Signs Date Temp Pulse Resp B/P (MAP) Pulse Ox O2 O2 Flow FiO2 Time Delivery Rate 12/28/18 98.2 104 16 117/77 94 07:57 (90) 12/27/18 Room Air 23:22 12/27/18 3.0 15:59 Intake and Output 12/27/18 12/27/18 12/28/18 1515:00 23:00 07:00 IntakeIntake Total 100 ml 1600 ml 1100 ml BalanceBalance 100 ml 1600 ml 1100 ml Exam Constitutional: alert, oriented Psych: no complaints, nl mood/affect Head: normocephalic, atraumatic Eyes: nl conjunctiva ENMT: nl external ears & nose, nl lips & teeth, nl nasal mucosa & septum Neck: supple, non-tender; No jvd Respiratory: clear to auscultation, normal air movement Cardiovascular: regular rate and rhythm, nl pulses; No irregular rhythm, No S3, No S4 Gastrointestinal: soft, non-tender Musculoskeletal: nl extremities to inspection Extremities: normal pulses Neurological: MANAGER FUNCTIONAL II-XII intact, nl mental status, nl speech, nl strength Results Result Diagram: 12/28/18 0509 12/28/18 0508 Results 24hrs Laboratory Tests Test 12/28/18 05:08 12/28/18 05:09 Sodium Level 138 Potassium Level 3.8 Chloride Level 103 Carbon Dioxide Level 31 Anion Gap 4 L Blood Urea Nitrogen 8 Creatinine 0.51 Est Glomerular Filtrat Rate mL/min > 60 Glucose Level 90 # Calcium Level 8.6 Magnesium Level 1.9 Free Thyroxine 1.86 H White Blood Count 7.4 Red Blood Count 3.56 L Hemoglobin 8.9 L Hematocrit 29.0 L Mean Corpuscular Volume 81.5 L Mean Corpuscular Hemoglobin 25.0 L Mean Corpuscular Hemoglobin Concent 30.7 L Red Cell Distribution Width 14.3 Platelet Count 286 # Mean Platelet Volume 9.3 Immature Granulocytes % 0.300 Neutrophils % 68.0 Lymphocytes % 19.1 Monocytes % 9.8 Eosinophils % 2.7 Basophils % 0.1 Nucleated Red Blood Cells % 0.0 Immature Granulocytes # 0.020 Neutrophils # 5.1 Lymphocytes # 1.4 Monocytes # 0.7 Eosinophils # 0.2 Basophils # 0.0 Nucleated Red Blood Cells # 0.0 Medications Medication Current Medications Levothyroxine Sodium (Synthroid) 150 mcg BEFORE BREAKFAST PO Last administered on 12/28/18 06:21; Admin Dose 150 MCG; Start 12/24/18 at 07:00 Acetaminophen/ Hydrocodone Bitart ([place] (10/325)) 1 tab Q4H PRN PO .PAIN 1-5 Last administered on 12/27/18 12:13; Admin Dose 1 TAB; Start 12/24/18 at 10:30 Acetaminophen/ Hydrocodone Bitart ([place] (10/325)) 2 tab Q4H PRN PO .PAIN 6-10 Last administered on 12/28/18 08:27; Admin Dose 2 TAB; Start 12/24/18 at 10:30 Hydromorphone HCl (Dilaudid) 0.2 mg Q1H PRN IV .BREAKTHROUGH PAIN Last administ ered on 12/28/18 05:26; Admin Dose 0.2 MG; Start 12/24/18 at 10:30 Ondansetron HCl (Zofran Inj) 4 mg Q6H PRN IV NAUSEA/VOMITING; Start 12/24/18 at 10:30 Bisacodyl (Dulcolax Supp) 10 mg DAILY PRN [place] .CONSTIPATION Last administered on 12/25/18 23:54; Admin Dose 10 MG; Start 12/24/18 at 10:30 Docusate Sodium (Colace) 100 mg BID PO Last administered on 12/28/18 08:27; Admin Dose 100 MG; Start 12/24/18 at 21:00 Al Hydrox/Mg Hydrox/Simethicone (Mag-Al Plus) 15 ml Q6H PRN PO .CONSTIPATION/DYSPEPSIA Last administered on 12/26/18 03:47; Admin Dose 15 ML; Start 12/24/18 at 10:30 Acetaminophen (Tylenol Tab) 650 mg Q4H PRN PO POPE OR TEMP GREATER THAN 101.3F Last administered on 12/25/18 00:39; Admin Dose 650 MG; Start 12/24/18 at 10:30 Cyclobenzaprine HCl (Flexeril) 10 mg TID PRN PO .MUSCLE SPASMS Last administered on 12/28/18 05:48; Admin Dose 10 MG; Start 12/24/18 at 10:30 Phenol (Cepastat Lozenge) 1 lozenge PRN PRN [place] .SORE THROAT Last administered on 12/24/18 21:02; Admin Dose 1 LOZENGE; Start 12/24/18 at 10:30 Diphenhydramine HCl (Benadryl) 25 mg Q6H PRN PO .ITCHING; Start 12/24/18 at 1 0:30 Diphenhydramine HCl (Benadryl) 25 mg Q6H PRN IV .ITCHING; Start 12/24/18 at 10:30 Naloxone HCl (Narcan) 0.2 mg Q2M PRN IV .RR 8 BREATHS/MIN OR LESS; Start 12/24/18 at 10:30 Miscellaneous Information 1. Hold BEARING RING ASSEMBLER at 1,000... BEARING RING ASSEMBLER IV ; Start 12/24/18 at 10:30 Lactulose (Enulose) 20 gm DAILY PRN PO CONSTIPATION Last administered on 12/27/18 12:13; Admin Dose 20 GM; Start 12/27/18 at 09:00 Metoprolol Succinate (Toprol Xl) 12.5 mg DAILY PO Last administered on 12/28/18 08:28; Admin Dose 12.5 MG; Start 12/28/18 at 09:00 ALLEY MACK Dec 28, 2018 09:10
--- NOTE | 2018-12-28 10:47 | PN ---
Date/Time of Note Date/Time of Note DATE: 12/28/18 TIME: 10:41 Assessment/Plan Lines/Catheters IV Catheter Type (from Nrsg): Peripheral IV [place] in Place (from Nrsg): Yes Assessment/Plan Assessment/Plan POD #5/4 s/p L2-S1 fusion stable for D/C from ortho/surgical perspective she has her post-op pain meds, zofran rx given to patient for nausea she may shower - do not soak or scrub incisions, do not need to cover she has her post-op f/u appointment i will defer to Dr. Giron for her D/C orders as he hasn't seen her yet today and she doesn't appeared to be D/C by PT yet PT to work on stairs and bed mobility with her today Dr. Harper D/C patient from cardiac perspective but recommends f/u as outpatient please give patient Dr. Harper office info prior to D/C so she can call to set up a f/u appointment please make sure patient has cardiac med rx prior to D/C she may start ASA 81mg from a surgical standpoint ER precautions d/w patient Subjective 24 Hr Interval Summary patient comfortable denies CP/SOB left leg pain improved right thigh pain improving wishes to go home Exam/Review of Systems Vital Signs Vitals Vital Signs Date Temp Pulse Resp B/P (MAP) Pulse Ox O2 O2 Flow FiO2 Time Delivery Rate 12/28/18 107 08:00 12/28/18 98.2 16 117/77 94 07:57 (90) 12/27/18 Room Air 23:22 12/27/18 3.0 15:59 Intake and Output 12/27/18 12/27/18 12/28/18 1515:00 23:00 07:00 IntakeIntake Total 100 ml 1600 ml 1100 ml BalanceBalance 100 ml 1600 ml 1100 ml Exam Free Text/Dictation AOx3 NAD exam unchanged free T4 elevated - management per primary Hct normalizing, 29 today from 27.4 yesterday mag 1.9 WNL Results Result Diagram: 12/28/18 0509 12/28/18 0508 BETHANY RIZZO PA-C Dec 28, 2018 10:47
[2018-12-28] MEDS ORDERED: DOCU-144 PO (12:45)
[2018-12-28] MEDS ORDERED: LEVO150T7 PO (12:45)
[2018-12-28] MEDS ORDERED: CYCL10TA7 PO (12:45)
[2018-12-28] MEDS ORDERED: METO-335 PO (12:45)
--- NOTE | 2018-12-28 13:01 | PDOCDIS ---
Discharge Instructions DIAGNOSIS Discharge Diagnosis s/p lumbar surgery, Supratherapeutic TSH/Ft4 (hypothyroidism), paroxysmal afib CONDITION [id number] Patient Condition: [id number] Fair HOME CARE INSTRUCTIONS: [id number] Diet Instructions: [id number] Regular ACTIVITY: [id number] Activity Restrictions: Eloeb2p Slowly Increase Activity [id number] Bathing Restrictions: [id number] Activity Restrictions [id number] Instructions per orthopedic Comment: team and PT for shower and activity FOLLOW UP/APPOINTMENTS Follow-up Plan Needs to follow up with orthopedic surgeon, Dr. Harper (collar turner) and primary care provider within 7 days HECTOR MONTANEZ MD Dec 28, 2018 13:01
--- NOTE | 2018-12-28 13:10 | PN ---
Date/Time of Note Date/Time of Note DATE: 12/28/18 TIME: 13:03 Subjective Patient reports that pain is adequately controlled. Denies fevers, chills, nausea, vomiting, diarrhea, constipation, chest pain, SOB, cough. Per nursing and case management home health is in process but patient reports there may be an issue with payment. Patient understands and accepts risk of going home without home health if in fact she does not receive home health care. She will leave with [facility] but does not want to wait until confirmation of commode DME delivery time/date. She reports that she will arrange for her to purchase a commode today. She is comfortable with the discharge plan. Objective Vitals Vital Signs Date Temp Pulse Resp B/P (MAP) Pulse Ox O2 O2 Flow FiO2 Time Delivery Rate 12/28/18 97.8 84 16 104/67 95 11:16 (79) 12/27/18 Room Air 23:22 12/27/18 3.0 15:59 Intake and Output 12/27/18 12/27/18 12/28/18 1515:00 23:00 07:00 IntakeIntake Total 100 ml 1600 ml 1100 ml BalanceBalance 100 ml 1600 ml 1100 ml Gen-NAD HEENT-op clear, mmm CV-rrr, nml s1/s2, no m/r/g pulm-CTAB, no w/r/r Abd-soft, nt/nd, +BS Ext-no c/c/e, observed to move all extremities Results Result Diagram: 12/28/18 0509 12/28/18 0508 Medications Medications Current Medications Acetaminophen/ Hydrocodone Bitart ([place] (10/325)) 1 tab Q4H PRN PO .PAIN 1-5 Last administered on 12/27/18at 12:13; Admin Dose 1 TAB; Start 12/24/18 at 10:30 Acetaminophen/ Hydrocodone Bitart ([place] (10/325)) 2 tab Q4H PRN PO .PAIN 6-10 Last administered on 12/28/18at 08:27; Admin Dose 2 TAB; Start 12/24/18 at 10:30 Hydromorphone HCl (Dilaudid) 0.2 mg Q1H PRN IV .BREAKTHROUGH PAIN Last administered on 12/28/18at 11:51; Admin Dose 0.2 MG; Start 12/24/18 at 10:30 Ondansetron HCl (Zofran Inj) 4 mg Q6H PRN IV NAUSEA/VOMITING; Start 12/24/18 at 10:30 Bisacodyl (Dulcolax Supp) 10 mg DAILY PRN [place] .CONSTIPATION Last administered on 12/25/18 23:54; Admin Dose 10 MG; Start 12/24/18 at 10:30 Docusate Sodium (Colace) 100 mg BID PO Last administered on 12/28/18 08:27; Admin Dose 100 MG; Start 12/24/18 at 21:00 Al Hydrox/Mg Hydrox/Simethicone (Mag-Al Plus) 15 ml Q6H PRN PO .CONSTIPATION/DYSPEPSIA Last administered on 12/26/18 03:47; Admin Dose 15 ML; Start 12/24/18 at 10:30 Acetaminophen (Tylenol Tab) 650 mg Q4H PRN PO POPE OR TEMP GREATER THAN 101.3F Last administered on 12/25/18 00:39; Admin Dose 650 MG; Start 12/24/18 at 10:30 Cyclobenzaprine HCl (Flexeril) 10 mg TID PRN PO .MUSCLE SPASMS Last administe red on 12/28/18 05:48; Admin Dose 10 MG; Start 12/24/18 at 10:30 Phenol (Cepastat Lozenge) 1 lozenge PRN PRN [place] .SORE THROAT Last administered on 12/24/18 21:02; Admin Dose 1 LOZENGE; Start 12/24/18 at 10:30 Diphenhydramine HCl (Benadryl) 25 mg Q6H PRN PO .ITCHING; Start 12/24/18 at 10:30 Diphenhydramine HCl (Benadryl) 25 mg Q6H PRN IV .ITCHING; Start 12/24/18 at 10:30 Naloxone HCl (Narcan) 0.2 mg Q2M PRN IV .RR 8 BREATHS/MIN OR LESS; Start 12/24/18 at 10:30 Miscellaneous Information 1. Hold DEPARTMENTAL SECRETARY at 1,000... DEPARTMENTAL SECRETARY IV ; Start 12/24/18 at 10:30 Lactulose (Enulose) 20 gm DAILY PRN PO CONSTIPATION Last administered on 12/27/18 12:13; Admin Dose 20 GM; Start 12/27/18 at 09:00 Metoprolol Succinate (Toprol Xl) 12.5 mg DAILY PO Last administered on 12/28/18at 08:28; Admin Dose 12.5 MG; Start 12/28/18 at 09:00 Levothyroxine Sodium (Synthroid) 137 mcg AC BREAKFAST PO ; Start 12/29/18 at 07:00 VTE Prophylaxis Risk score (from [facility])>0 risk: 3 SCD applied (from [facility]): Yes VTE Confirmed-Overlap Tx Rcvd Reason for no Overlap Therapy: Contraindicated VTE Overlap Tx Contraindicated: bleeding Lines/Catheters IV Catheter Type: Peripheral IV Elizondo in Place: No Assessment/Plan Hospital Course 58 y/o female pmh hypothyroidism, remote viral cmy, s/p lumbar fusion and placement of an intervertebral biomechanical device with course c/b afib that was converted to NSR with meds. She was found to have suppressed TSH and supratherepautic Ft4. Was started on metop 12.5 mg XL qday by cardiology. Levothyroxine dosing was adjusted appropriately. Assessment/Plan #s/p lumbar surgery -PT arranged through home health, patient understands importance of this -pain meds were provided by surgery -bowel regimen was discussed with patient as well. #new onset afib-possibly due to hyperthyroidism, is now in NSR -appreciate cards recs, will need to follow up with cardiology as outpatient -continue MTP 12.5 mg XL on discharge, this was discussed with patient #hypothyroidism -will decrease levothyroxine from 150 mcg to 137 mcg po qday Dispo: DC home today with . Will leave with FWW, will need to follow up with primary, surgery, and cardiology on discharge. HECTOR MONTANEZ MD Dec 28, 2018 13:10
--- NOTE | 2018-12-28 13:12 | DS ---
Date/Time of Note Date/Time of Note DATE: 12/28/18 TIME: 13:11 Discharge Summary Admission/Discharge Info Admit Date/Time Dec 23, 2018 at 10:13 Discharge Date/Time Discharge Diagnosis s/p lumbar surgery, Supratherapeutic TSH/Ft4 (hypothyroidism), paroxysmal afib Patient Condition: Fair Consults Cardiology Hospital Course 58 y/o female pmh hypothyroidism, remote viral cmy, s/p lumbar fusion and placement of an intervertebral biomechanical device with course c/b afib that was converted to NSR with meds. She was found to have suppressed TSH and supratherepautic Ft4. Was started on metop 12.5 mg XL qday by cardiology. Levothyroxine dosing was adjusted appropriately. Home Meds Active Scripts Cyclobenzaprine Hcl* (Cyclobenzaprine Hcl*) 10 Mg Tablet, 10 MG PO TID PRN for .MUSCLE SPASMS for 30 Days, #30 TAB Prov:HECTOR MONTANEZ MD 12/28/18 Levothyroxine Sodium* (Levothyroxine Sodium*) 150 Mcg Tablet, 137 MCG PO BEFORE BREAKFAST for 30 Days, #30 TAB Prov:HECTOR MONTANEZ MD 12/28/18 Docusate Sodium* (Colace*) 100 Mg Capsule, 100 MG PO BID for 30 Days, #60 CAP Prov:HECTOR MONTANEZ MD 12/28/18 Metoprolol Succinate* (Toprol XL*) 25 Mg Tab.sr.24h, 12.5 MG PO DAILY for 30 Days, #30 Prov:HECTOR MONTANEZ MD 12/28/18 Reported Medications Hydrocodone/Acetaminophen (Hydrocodone-Acetamin 10-325 mg) 1 Each Tablet, 1 TAB ORAL Q6 PRN for PAIN LEVEL 7-10 12/23/18 Levothyroxine Sodium* (Levothyroxine Sodium*) 150 Mcg Tablet, 150 MCG PO BEFORE BREAKFAST, #30 TAB 12/23/18 Discontinued Reported Medications Levothyroxine Sodium (Levothroid) 125 Mcg Tablet, 125 MCG PO DAILY 03/05/12 Hydrocodone Bit-Acetaminophen* ([place]*) 1 Tab Tab, 1 TAB PO TID 03/05/12 Follow-up Plan Needs to follow up with orthopedic surgeon, Dr. Harper (mail superintendent) and primary care provider within 7 days Primary Care Provider Not On Staff Doctor Time spent on discharge: < 30 minutes Pending Labs Laboratory Tests Test 12/28/18 05:08 12/28/18 05:09 Sodium Level 138 mmol/L (135-144) Potassium Level 3.8 mmol/L (3.5-5.1) Chloride Level 103 mmol/L (97-110) Carbon Dioxide Level 31 mmol/L (21-31) Anion Gap 4 (5-13) Blood Urea Nitrogen 8 mg/dl (7-20) Creatinine 0.51 mg/dl (0.44-1.00) Est Glomerular Filtrat > 60 mL/min (>60) Rate mL/min Glucose Level 90 mg/dl (70-220) Calcium Level 8.6 mg/dl (8.4-10.2) Magnesium Level 1.9 mg/dl (1.7-2.5) Free Thyroxine 1.86 ng/dl (0.64-1.79) White Blood Count 7.4 10^3/ul (4.8-10.8) Red Blood Count 3.56 10^6/ul (4.20-5.40) Hemoglobin 8.9 g/dl (12.0-16.0) Hematocrit 29.0 % (37.0-47.0) Mean Corpuscular Volume 81.5 fl (82.0-101.0) Mean Corpuscular Hemoglobin 25.0 pg (29.0-33.0) Mean Corpuscular 30.7 g/dl (32.0-37.0) Hemoglobin Concent Red Cell Distribution Width 14.3 % (11.5-14.5) Platelet Count 286 10^3/UL (140-415) Mean Platelet Volume 9.3 fl (7.4-10.4) Immature Granulocytes % 0.300 % (0.001-0.429) Neutrophils % 68.0 % (39.0-77.0) Lymphocytes % 19.1 % (15.0-51.0) Monocytes % 9.8 % (0.0-11.0) Eosinophils % 2.7 % (0.0-7.0) Basophils % 0.1 % (0.0-2.0) Nucleated Red Blood Cells % 0.0 /100WBC (0.0-0.0) Immature Granulocytes # 0.020 10^3/ul (0.0-0.031) Neutrophils # 5.1 10^3/ul (1.6-7.5) Lymphocytes # 1.4 10^3/ul (0.8-2.9) Monocytes # 0.7 10^3/ul (0.3-0.9) Eosinophils # 0.2 10^3/ul (0.0-0.5) Basophils # 0.0 10^3/ul (0.0-0.1) Nucleated Red Blood Cells # 0.0 10^3/ul (0.0-0.0) HECTOR MONTANEZ MD Dec 28, 2018 13:11
[2018-12-28] MEDS ORDERED: ASPI-817 PO (13:16)
[2018-12-29] MEDS ORDERED: LEVOTHYROXINE 137 MCG TAB PO SCH (07:00)
--- NOTE | 2018-12-30 14:35 | DS ---
Date/Time of Note Date/Time of Note DATE: 12/30/18 TIME: 14:34 Discharge Summary Admission/Discharge Info Admit Date/Time Dec 23, 2018 at 10:13 Discharge Date/Time Dec 28, 2018 at 16:31 Discharge Diagnosis s/p lumbar surgery, Supratherapeutic TSH/Ft4 (hypothyroidism), paroxysmal afib Patient Condition: Fair Procedures Lumbar fusion Hospital Course Patient was admitted to the [facility] after undergoing lumbar fusion. Her postoperative course was complicated by atrial fibrillation. She converted on her own and was treated with aspirin and was stable for discharge on December 28 with follow-up arranged with the undersigned. Prescriptions have been provided to the patient for postoperative management of her pain. Home Meds Active Scripts Aspirin* (Aspirin* EC) 81 Mg Tablet.dr, 81 MG PO DAILY for 30 Days, TAB Prov:HECTOR MONTANEZ MD 12/28/18 Cyclobenzaprine Hcl* (Cyclobenzaprine Hcl*) 10 Mg Tablet, 10 MG PO TID PRN for .MUSCLE SPASMS for 30 Days, #30 TAB Prov:HECTOR MONTANEZ MD 12/28/18 Levothyroxine Sodium* (Levothyroxine Sodium*) 150 Mcg Tablet, 137 MCG PO BEFORE BREAKFAST for 30 Days, #30 TAB Prov:HECTOR MONTANEZ MD 12/28/18 Docusate Sodium* (Colace*) 100 Mg Capsule, 100 MG PO BID for 30 Days, #60 CAP Prov:HECTOR MONTANEZ MD 12/28/18 Metoprolol Succinate* (Toprol XL*) 25 Mg Tab.sr.24h, 12.5 MG PO DAILY for 30 Days, #30 Prov:HECTOR MONTANEZ MD 12/28/18 Reported Medications Hydrocodone/Acetaminophen (Hydrocodone-Acetamin 10-325 mg) 1 Each Tablet, 1 TAB ORAL Q6 PRN for PAIN LEVEL 7-10 12/23/18 Discontinued Reported Medications Levothyroxine Sodium* (Levothyroxine Sodium*) 150 Mcg Tablet, 150 MCG PO BEFORE BREAKFAST, #30 TAB 12/23/18 Levothyroxine Sodium (Levothroid) 125 Mcg Tablet, 125 MCG PO DAILY 03/05/12 Hydrocodone Bit-Acetaminophen* ([place]*) 1 Tab Tab, 1 TAB PO TID 03/05/12 Follow-up Plan Needs to follow up with orthopedic surgeon, Dr. Harper (bran mixer) and prim [place] care provider within 7 days Primary Care Provider Not On Staff Doctor ANTONIO TRUJILLO MD Dec 30, 2018 14:35
== END 2018-12-28 16:31 | disposition home health service (06) | DRG 455 ==
LOC: REC 10:13 → MS1 18:30 → 6WM 12-26 10:00
PROVIDERS: ADMIT Specialist; ATTEND Specialist
PROC: 0ST20ZZ Resection of Lumbar Vertebral Disc, Open Approach (ICD-10-PCS; 2018-12-23)
PROC: 4A11X4G Monitoring of Peripheral Nervous Electrical Activity, Intraoperative, External Approach (ICD-10-PCS; 2018-12-23)
PROC: 0SG10A0 Fusion of 2 or more Lumbar Vertebral Joints with Interbody Fusion Device, Anterior Approach, Anterior Column, Open Approach (ICD-10-PCS; principal; 2018-12-23 12:00)
PROC: 0SG10K1 Fusion of 2 or more Lumbar Vertebral Joints with Nonautologous Tissue Substitute, Posterior Approach, Posterior Column, Open Approach (ICD-10-PCS; 2018-12-24)
PROC: 0SG30AJ Fusion of Lumbosacral Joint with Interbody Fusion Device, Posterior Approach, Anterior Column, Open Approach (ICD-10-PCS; 2018-12-24)
PROC: 0SG30K1 Fusion of Lumbosacral Joint with Nonautologous Tissue Substitute, Posterior Approach, Posterior Column, Open Approach (ICD-10-PCS; 2018-12-24)
PROC: 0ST40ZZ Resection of Lumbosacral Disc, Open Approach (ICD-10-PCS; 2018-12-24)
PROC: 4A11X4G Monitoring of Peripheral Nervous Electrical Activity, Intraoperative, External Approach (ICD-10-PCS; 2018-12-24)
DX: M41.86 Other forms of scoliosis, lumbar region (principal); M48.061 Spinal stenosis, lumbar region without neurogenic claudication; M54.16 Radiculopathy, lumbar region; E03.9 Hypothyroidism, unspecified; E83.42 Hypomagnesemia; I48.0 Paroxysmal atrial fibrillation; E05.80 Other thyrotoxicosis without thyrotoxic crisis or storm; T38.1X5A Adverse effect of thyroid hormones and substitutes, initial encounter
CPT/HCPCS: 72100; 72114; 72131; 80048; 81001; 82962; 83735; 84439; 84443; 85025; 86850; 86900; 86901; 86920; 86999; 88304; 93005; 93306; 97110; 97116; 97162; 97164; 97530; C9113; J0690; J1100; J1170; J1200; J1644; J2250; J2405; J2710; J2765; J3010; J3475; J3480; J7040